=== PATIENT | male | born 1985 | race Caucasian/White ===

== ENCOUNTER 2021-04-08 16:47 | Emergency (ER) | payer BC ==
--- NOTE | 2021-04-08 18:34 | RAD REPORT ---
EXAM DESCRIPTION: RAD - Chest Pa And Lat (2 Views) - 04/08/2021 6:26 pm CLINICAL HISTORY: SOB Chest pain. COMPARISON: No comparisons FINDINGS: Mild bilateral pulmonary opacities are present compatible with COVID-19 infection. The hea rt is normal in size. No displaced fractures.
--- NOTE | 2021-04-08 19:36 | ER ---
Nurse's Notes [facility] Name: Art Valenzuela Age: 35 yrs Sex: Male : 1985 Arrival Date: 04/08/2021 Time: 16:58 Bed 9 Private MD: Diagnosis: Pneumonia due to SARS-associated coronavirus Presentation: 04/08 18:02 Chief complaint: Patient states: SOB, Diarrhea, abdominal, fever, chills. Coronavirus kg screen: Client denies travel out of the [place] in the last 14 days. At this time, unable to obtain information related to travel outside the [place] Client presents with at least one sign or symptom that may indicate coronavirus-19. Standard/surgical mask placed on the client. Provider contacted for isolation considerations. Client reports previous positive COVID test result. Date of collection: April 03, 2021. Ebola Screen: Patient negative for fever greater than or equal to 101.5 degrees Fahrenheit, and additional compatible Ebola Virus Disease symptoms Patient denies exposure to infectious person. Patient denies travel to an Ebola-affected area in the 21 days before illness onset. Initial Sepsis Screen: Does the patient meet any 2 criteria? No. Patient's initial sepsis screen is negative. Does the patient have a suspected source of infection? No. Patient's initial sepsis screen is negative. Risk Assessment: Do you want to hurt yourself or someone else? Patient reports no desire to harm self or others. Onset of symptoms was April 07, 2021. 18:02 Method Of Arrival: Ambulatory kg 18:02 Acuity: [place] 4 kg Triage Assessment: 18:05 General: Appears in no apparent distress. Behavior is calm, cooperative, appropriate kg for age, quiet. Pain: Complains of pain in chest. Cardiovascular: Reports chest pain, shortness of breath. Respiratory: Reports shortness of breath cough that is pain with cough Airway is patent Trachea midline Respiratory effort is labored, Respiratory pattern is tachypnea. Historical: - Allergies: 18:05 No Known Allergies; kg - Home Meds: 18:05 Protonix 40 mg Oral TbEC 1 tab once daily [Active]; kg - PMHx: 18:05 C-diff; Gerd; kg - PSHx: 18:05 None; kg - Immunization history:: Adult Immunizations not up to date, Client reports having NOT received the Covid vaccine. - Social history:: Smoking status: Patient denies any tobacco usage or history of. Patient uses alcohol, occasionally. Screenin:38 Abuse screen: Denies threats or abuse. Denies injuries from another. Nutritional lp1 screening: No deficits noted. Tuberculosis screening: No symptoms or risk factors identified. Fall Risk None identified. Assessment: 20:36 Reassessment: Patient appears in no apparent distress at this time. Seen by Provider. lp1 Neuro: Level of Consciousness is awake, alert, obeys commands. Respiratory: Respiratory effort is even, shallow. Derm: Skin is pink, warm \T\ dry. Vital Signs: 18:02 BP 126 / 77; Pulse 99; Resp 20; Temp 99.3; Pulse Ox 96% on R/A; Weight 111.13 kg (R); kg Height 5 ft. 6 in. (167.64 cm); Pain 5/10; 20:19 BP 138 / 74 LA Supine (auto/lg); Pulse 102 MON; Resp 22 S; Temp 98.8; Pulse Ox 96% ; ds4 Pain 0/10; 18:02 Body Mass Index 39.54 (111.13 kg, 167.64 cm) kg ED Course: 16:58 Patient arrived in ED. mr 18:05 Triage completed. kg 18:24 XRAY Chest Pa And Lat (2 Views) In Process Unspecified. EDOR 19:14 Eris Jesus PA is PHCP. jr8 19:14 Lucas Kan MD is Attending Physician. jr8 20:36 Lizett Robledo, RN is Primary Nurse. lp1 20:38 No provider procedures requiring assistance completed. Patient did not have IV access lp1 during this emergency room visit. Patient maintains SpO2 saturation greater than 95% on room air. 20:38 Patient has correct armband on for positive identification. lp1 Administered Medications: No medications were administered Outcome: 19:35 Discharge ordered by . jr8 20:38 Discharged to home ambulatory. lp1 20:38 Condition: good 20:38 Discharge instructions given to patient, Instructed on discharge instructions, follow up and referral plans. medication usage, Demonstrated understanding of instructions, follow-up care, medications, Prescriptions given X 2. 20:38 Patient left the ED. lp1 Signatures: Dispatcher [employer] [facility] CifuentesDiana recinos Laura, RN RN lp1 Eris Jesus PA PA jr8 Garo Jenkins ds4 Pauly Montelongo RN RN kg Corrections: (The following items were deleted from the chart) 18:07 18:05 Home Meds: None; kg kg
--- NOTE | 2021-04-08 19:36 | EDPHYS ---
Physician Documentation [facility] Name: Art Valenzuela Age: 35 yrs Sex: Male : 1985 Arrival Date: 04/08/2021 Time: 16:58 Bed 9 Private MD: HOWARD Physician Lucas Kan HPI: 04/08 19:32 This 35 yrs old Male presents to ER via Ambulatory with complaints of COVID+, jr8 Chest Tightness, Cough. 19:32 Onset: The symptoms/episode began/occurred gradually. Associated signs and symptoms: jr8 The patient has no apparent associated signs or symptoms. Modifying factors: The patient symptoms are alleviated by nothing, the patient symptoms are aggravated by activity. The patient has not experienced similar symptoms in the past. The patient has not recently seen a physician. Historical: - Allergies: 18:05 No Known Allergies; kg - Home Meds: 18:05 Protonix 40 mg Oral TbEC 1 tab once daily [Active]; kg - PMHx: 18:05 C-diff; Gerd; kg - PSHx: 18:05 None; kg - Immunization history:: Adult Immunizations not up to date, Client reports having NOT received the Covid vaccine. - Social history:: Smoking status: Patient denies any tobacco usage or history of. Patient uses alcohol, occasionally. ROS: 19:32 Eyes: Negative for injury, pain, redness, and discharge, ENT: Negative for injury, jr8 pain, and discharge, Neck: Negative for injury, pain, and swelling, Cardiovascular: Negative for chest pain, palpitations, and edema, Abdomen/GI: Negative for abdominal pain, nausea, vomiting, diarrhea, and constipation, Back: Negative for injury and pain, MS/Extremity: Negative for injury and deformity, Skin: Negative for injury, rash, and discoloration, Neuro: Negative for headache, weakness, numbness, tingling, and seizure. 19:32 Respiratory: Positive for cough, Negative for shortness of breath, sputum production. Exam: 19:32 Constitutional: This is a well developed, well nourished patient who is awake, alert, jr8 and in no acute distress. ENT: Nares patent. No nasal discharge, no septal abnormalities noted. Tympanic membranes are normal and external auditory canals are clear. Oropharynx with no redness, swelling, or masses, exudates, or evidence of obstruction, uvula midline. Mucous membranes moist. Neck: Trachea midline, no thyromegaly or masses palpated, and no cervical lymphadenopathy. Supple, full range of motion without nuchal rigidity, or vertebral point tenderness. No Meningismus. Cardiovascular: Regular rate and rhythm with a normal S1 and S2. No gallops, murmurs, or rubs. Normal PMI, no JVD. No pulse deficits. Respiratory: Lungs have equal breath sounds bilaterally, clear to auscultation and percussion. No rales, rhonchi or wheezes noted. No increased work of breathing, no retractions or nasal flaring. Abdomen/GI: Soft, non-tender, with normal bowel sounds. No distension or tympany. No guarding or rebound. No evidence of tenderness throughout. Back: No spinal tenderness. No costovertebral tenderness. Full range of motion. Skin: Warm, dry with normal turgor. Normal color with no rashes, no lesions, and no evidence of cellulitis. MS/ Extremity: Pulses equal, no cyanosis. Neurovascular intact. Full, normal range of motion. Neuro: Awake and alert, GCS 15, oriented to person, place, time, and situation. Cranial nerves II-XII grossly intact. Motor strength 5/5 in all extremities. Sensory grossly intact. Cerebellar exam normal. Normal gait. Vital Signs: 18:02 BP 126 / 77; Pulse 99; Resp 20; Temp 99.3; Pulse Ox 96% on R/A; Weight 111.13 kg (R); kg Height 5 ft. 6 in. (167.64 cm); Pain 5/10; 20:19 BP 138 / 74 LA Supine (auto/lg); Pulse 102 MON; Resp 22 S; Temp 98.8; Pulse Ox 96% ; ds4 Pain 0/10; 18:02 Body Mass Index 39.54 (111.13 kg, 167.64 cm) kg MDM: 19:14 Patient medically screened. jr8 19:34 Data reviewed: vital signs, nurses notes, radiologic studies, plain films. Data jr8 interpreted: Pulse oximetry: on room air is 96 %. Interpretation: normal. Counseling: I had a detailed discussion with the patient and/or guardian regarding: the historical points, exam findings, and any diagnostic results supporting the discharge/admit diagnosis, radiology results, the need for outpatient follow up, a family practitioner, to return to the emergency department if symptoms worsen or persist or if there are any questions or concerns that arise at home. ED course: Patient remains hemodynamically stable in emergency room. No increased work of breathing at this time. Oxygen saturation 96% on room air. Patient does have mild viral pneumonia present on chest x-ray. Will treat with steroids and ivermectin at this time. To continue vitamin regimen [id number]. Close return precautions given. Patient agrees with plan and will come back if needed.. 04/08 18:08 Order name: XRAY Chest Pa And Lat (2 Views); Complete Time: 19:31 kg Administered Medications: No medications were administered Disposition: 04/09 07:51 Co-signature as Attending Physician, Lucas Kan MD I agree with the assessment and chandu plan of care. Disposition Summary: 04/08/21 19:35 Discharge Ordered Location: Home jr8 Problem: new jr8 Symptoms: have improved jr8 Condition: Stable jr8 Diagnosis - Pneumonia due to SARS-associated coronavirus jr8 Followup: jr8 - With: Private Physician - When: 5 - 6 days - Reason: Recheck today's complaints, Continuance of care, Re-evaluation by your physician Discharge Instructions: - Discharge Summary Sheet jr8 - COVID-19 jr8 Forms: - Medication Reconciliation Form jr8 - Thank You Letter jr8 - Antibiotic Education jr8 - Prescription Opioid Use jr8 Prescriptions: - ivermectin 3 mg Oral tablet - take 6 tablet by ORAL route once daily for 3 days; 18 tablet; Refills: 0, jr8 Product Selection Permitted - Prednisone 20 mg Oral Tablet - take 1 tablet by ORAL route once daily for 7 days; 7 tablet; Refills: 0, jr8 Product Selection Permitted Signatures: Dispatcher [employer] EDLucas Holliday MD MD cha Roszak, Josh, PA PA jr8 Pauly Montelongo RN RN kg Corrections: (The following items were deleted from the chart) 04/08 18:07 18:05 Home Meds: None; kg kg
[2021-04-08 20:51] VITALS: O2SAT 96
[2021-04-08 20:53] VITALS: BP 138/74; TEMP 98.8
== END 2021-04-08 20:38 | disposition home or self-care (01) ==
LOC: ER 16:47
DX: U07.1 COVID-19 (principal); J12.82 Pneumonia due to coronavirus disease 2019
CPT/HCPCS: 71046; 99284

== ENCOUNTER 2021-04-12 00:30 | Inpatient (IN) | payer BC ==
[2021-04-12] MEDS ORDERED: BENZONATATE 100 MG CAP PO ONE (02:52)
[2021-04-12] MEDS ORDERED: NA CHLORIDE 0.9% 1,000 ML ONE (02:52)
[2021-04-12] MEDS ORDERED: METHYLPREDNISOLONE 125 MG INJ ONE ×3 (02:52→15:14)
[2021-04-12 03:04] LABS: Absolute Lymphocytes (CBC) 0.5 K/uL (0.7-4.9); Basophils % 0.2 % (0-1.3); Hematocrit 37.6 % (39.6-49.0); Lymphocytes % 10.2 % (15.3-44.8); MPV 7.6 fL (7.6-11.3); RBC Red Blood Cell Count 4.46 M/uL (4.33-5.43)
[2021-04-12 03:05] LABS: Protime INR 1.23
[2021-04-12 03:23] LABS: ALT/SGPT 80 U/L (12-78); AST/SGOT 146 U/L (15-37); Albumin 3.3 g/dL (3.4-5.0); Alkaline Phosphatase 40 U/L (45-117); BUN Blood Urea Nitrogen 15 mg/dL (7-18); Bicarbonate 27 mmol/L (21-32); Bilirubin Direct 0.3 mg/dL (0-0.2); Bilirubin Total 0.7 mg/dL (0.2-1.0); Glucose Level 103 mg/dL (74-106); Magnesium 2.3 mg/dL (1.8-2.4); NT PRO-BNP 46 pg/mL (<125); Potassium 3.5 mmol/L (3.5-5.1); Protein, Total 7.7 g/dL (6.4-8.2); Sodium Level 127 mmol/L (136-145); Troponin (Emerg Dept Use Only) < 0.02 ng/mL (0.0-0.045)
[2021-04-12 03:35] LABS: C-Reactive Protein 72.2 mg/L (<3.00); Ferritin 929.4 ng/mL (26-388)
--- NOTE | 2021-04-12 03:35 | ER ---
Nurse's Notes [facility] Name: Art Valenzuela Age: 35 yrs Sex: Male : 1985 Arrival Date: 04/12/2021 Time: 00:31 Bed 28 Private MD: Diagnosis: Other viral pneumonia;SARS-associated coronavirus as the cause of diseases classified elsewhere;Acute respiratory failure with hypoxia;Dyspnea Presentation: 04/12 01:59 Chief complaint: Patient states: covid positive 3 days ago, was sent home with abx, em reports increased shortness of breath and reports fever, having few word sentences in triage. Coronavirus screen: Client denies travel out of the [place] in the last 14 days. Ebola Screen: Patient negative for fever greater than or equal to 101.5 degrees Fahrenheit, and additional compatible Ebola Virus Disease symptoms Patient denies exposure to infectious person. Patient denies travel to an Ebola-affected area in the 21 days before illness onset. No symptoms or risks identified at this time. Initial Sepsis Screen: Does the patient meet any 2 criteria? RR > 20 per min. HR > 90 bpm. No. Patient's initial sepsis screen is negative. Does the patient have a suspected source of infection? No. Patient's initial sepsis screen is negative. Risk Assessment: Do you want to hurt yourself or someone else? Patient reports no desire to harm self or others. Onset of symptoms was April 08, 2021. 01:59 Method Of Arrival: Ambulatory em 01:59 Acuity: [place] 2 em Triage Assessment: 03:00 Respiratory: Reports shortness of breath at rest on exertion Onset: The bb symptoms/episode began/occurred at an unknown time. the patient has moderate shortness of breath. Historical: - Allergies: 02:02 No Known Allergies; em - PMHx: 02:02 C-diff; GERD; em - PSHx: 02:02 None; em - Social history:: Smoking status: Patient denies any tobacco usage or history of. Screenin:30 Abuse screen: Denies threats or abuse. Nutritional screening: No deficits noted. bb Tuberculosis screening: No symptoms or risk factors identified. Fall Risk None identified. Assessment: 02:30 General: Appears distressed, uncomfortable, Behavior is anxious. Pain: Denies pain. bb Neuro: Level of Consciousness is awake, alert, obeys commands, Oriented to person, place, time, situation. Respiratory: Airway is patent Respiratory effort is labored, Respiratory pattern is tachypnea. GI: No signs and/or symptoms were reported involving the gastrointestinal system. Derm: Skin is dry, Skin is oliveira Skin temperature is warm. Musculoskeletal: Circulation, motion, and sensation intact. 02:30 Respiratory: Breath sounds are diminished bilaterally. bb 03:30 Reassessment: pt alert and oriented x 4, resp tachypneic and less labored, pt to be bb admitted, verbalized understanding of and agrees to plan of care. 04:30 Reassessment: pt is A\\T\\O x 4, resp less labored, tachypneic states he is feeling a bb little better. 05:02 Cardiovascular: Rhythm is sinus rhythm. bb 06:03 Reassessment: Pt is A\\T\\O x 4, resp unlabored, IV site intact, pt instructed on need for bb admit, verbalized understanding of and agrees to plan of care. Vital Signs: 01:59 BP 121 / 81; Pulse 98; Resp 40; Temp 99.2; Pulse Ox 83% on R/A; Weight 111.13 kg; em Height 5 ft. 6 in. (167.64 cm); 02:18 Pulse Ox 93% on 5 lpm NC; em 05:04 BP 120 / 77; Pulse 90; Resp 32 S; Pulse Ox 92% on 5 lpm NC; bb 06:07 BP 112 / 60; Pulse 98; Resp 28 S; Pulse Ox 94% on 5 lpm NC; bb 04/14 05:45 BP 122 / 65; Pulse 84; Resp 17; Pulse Ox 88% on 5 lpm NC; mw2 04/12 01:59 Body Mass Index 39.54 (111.13 kg, 167.64 cm) em ED Course: 04/12 00:31 Patient arrived in ED. bp1 02:02 Triage completed. em 02:02 Arm band placed on. em 02:18 Umberto Alexander MD is Attending Physician. mh7 02:21 Lucas Peng PA is PHCP. cp 02:30 Patient has correct armband on for positive identification. Call light in reach. bb 02:32 XRAY Chest (1 view) In Process Unspecified. EDMS 02:43 Missed attempt(s): 18 gauge in left antecubital area. Bleeding controlled, band aid bb applied, catheter tip intact. 02:45 Initial lab(s) drawn, by me, sent to lab. Inserted saline lock: 18 gauge in right bb antecubital area, using aseptic technique. Blood collected. 03:33 Yvon Castillo DO is Hospitalizing Provider. cp 04:11 CT Chest For PE Angio In Process Unspecified. EDMS 05:02 Patient admitted, IV remains in place. bb 05:04 No provider procedures requiring assistance completed. bb 05:11 COVID-19 : Document "Date of Symptom Onset" if Symptomatic. Sent. bb 04/14 07:05 Geoff Solomon, RN is Primary Nurse. bp 19:30 Primary Nurse role handed off by Geoff Solomon, LACY mw2 23:16 nAa Figueroa, RN is Primary Nurse. ch4 Administered Medications: 04/12 02:53 Drug: SOLU-Medrol (methylPrednisoLONE) 125 mg Route: IVP; Site: right antecubital; bb 03:50 Follow up: Response: No adverse reaction bb 02:53 Drug: NS 0.9% 1000 ml Route: IV; Rate: 1 bolus; Site: right antecubital; bb 03:50 Follow up: IV Status: Completed infusion; IV Intake: 1000ml bb 02:53 Drug: Tessalon Perle (benzonatate) 200 mg Route: PO; bb 03:50 Follow up: Response: No adverse reaction bb Intake: 03:50 IV: 1000ml; Total: 1000ml. bb Outcome: 03:34 Decision to Hospitalize by Provider. cp 05:03 Instructed on the need for admit. bb 06:07 Admitted to ER Hold. Please see [facility] for further documentation. bb 06:07 Condition: stable 04/14 23:38 Patient left the ED. ch4 Signatures: Dispatcher [employer] EDMI Adiel Meng, RN Yoli Cruz RN RN bb Lucas Peng PA PA cp Geoff Solomon, LACY RN Toñito Bernstein mw2 Roshni Alvarez [facility] Umberto Alexander MD MD [facility] Ana Figueroa, LACY RN ch4
--- NOTE | 2021-04-12 03:35 | EDPHYS ---
Physician Documentation Formerly [facility] Name: Art Valenzuela Age: 35 yrs Sex: Male : 1985 Arrival Date: 04/12/2021 Time: 00:31 Bed 28 Private MD: ED Physician Umberto Alexander HPI: 04/12 02:20 This 35 yrs old Male presents to ER via Ambulatory with complaints of cp Breathing Difficulty. 02:20 The patient has shortness of breath at rest. cp 02:20 Onset: The symptoms/episode began/occurred 3 day(s) ago, and became worse. Duration: cp The symptoms are continuous, and are steadily getting worse. Associated signs and symptoms: Pertinent positives: chest pain, Pertinent negatives: productive cough, fever. Severity of symptoms: in the emergency department the symptoms are unchanged despite home interventions. Patient reports testing positive for COVID-19 3 days ago. Historical: - Allergies: 02:02 No Known Allergies; em - PMHx: 02:02 C-diff; GERD; em - PSHx: 02:02 None; em - Social history:: Smoking status: Patient denies any tobacco usage or history of. ROS: 02:25 Constitutional: Negative for body aches, chills, fever, poor PO intake. cp 02:25 Eyes: Negative for injury, pain, redness, and discharge. cp 02:25 ENT: Negative for drainage from ear(s), ear pain, sore throat, difficulty swallowing, difficulty handling secretions. 02:25 Cardiovascular: Negative for chest pain, edema, palpitations. 02:25 Respiratory: Positive for cough, "sounds productive", shortness of breath, at rest. 02:25 Abdomen/GI: Negative for abdominal pain, vomiting, diarrhea, constipation. 02:25 Skin: Negative for rash. 02:25 Neuro: Negative for altered mental status, headache, weakness. 02:25 All other systems are negative. Exam: 02:30 Constitutional: The patient appears in no acute distress, alert, awake, cp non-diaphoretic, non-toxic, well developed, well nourished, in obvious distress, mildly distressed. 02:30 Head/Face: Normocephalic, atraumatic. cp 02:30 Eyes: Periorbital structures: appear normal, Conjunctiva: normal, no exudate, no injection, Sclera: no appreciated abnormality, Lids and lashes: appear normal, bilaterally. 02:30 ENT: External ear(s): are unremarkable, Nose: is normal, Mouth: Lips: moist, Oral mucosa: pink and intact, moist, Posterior pharynx: Airway: no evidence of obstruction, patent, Tonsils: are normal in appearance, swelling, is not appreciated, erythema, is not appreciated, exudate, is not appreciated. 02:30 Neck: ROM/movement: is normal, is supple, no meningismus, no nuchal rigidity. 02:30 Chest/axilla: Inspection: normal. 02:30 Cardiovascular: Rate: normal, Rhythm: regular, Edema: is not appreciated, JVD: is not appreciated. 02:30 Respiratory: mild respiratory distress is noted, Respirations: labored breathing, that is mild, shallow respirations, that is moderate, Breath sounds: decreased breath sounds, that are mild, throughout, stridor, is not appreciated, wheezing: is not appreciated. 02:30 Abdomen/GI: Inspection: abdomen appears normal, Palpation: abdomen is soft and non-tender, in all quadrants. 02:30 Back: pain, is absent, ROM is normal. 02:30 Neuro: Orientation: to person, place \\T\\ time. Mentation: is normal, Motor: moves all fours, strength is normal, Sensation: is normal. 03:48 ECG was reviewed by the Attending Physician. cp Vital Signs: 01:59 BP 121 / 81; Pulse 98; Resp 40; Temp 99.2; Pulse Ox 83% on R/A; Weight 111.13 kg; em Height 5 ft. 6 in. (167.64 cm); 02:18 Pulse Ox 93% on 5 lpm NC; em 05:04 BP 120 / 77; Pulse 90; Resp 32 S; Pulse Ox 92% on 5 lpm NC; bb 06:07 BP 112 / 60; Pulse 98; Resp 28 S; Pulse Ox 94% on 5 lpm NC; bb 04/14 05:45 BP 122 / 65; Pulse 84; Resp 17; Pulse Ox 88% on 5 lpm NC; mw2 04/12 01:59 Body Mass Index 39.54 (111.13 kg, 167.64 cm) em MDM: 04/12 02:22 Patient medically screened. cp 03:00 Differential diagnosis: Bronchitis pneumonia, pulmonary edema, Pulmonary Embolism cp Sepsis respiratory failure. 03:35 Data reviewed: vital signs, nurses notes, lab test result(s), EKG, radiologic studies, cp plain films, and as a result, I will admit patient. 03:35 Test interpretation: by ED physician or midlevel provider: ECG, plain radiologic cp studies. Physician consultation: Dinesh HAYS was contacted at 03:35, regarding admission, to the telemetry unit. patient's condition. 04/12 02:14 Order name: Basic Metabolic Panel; Complete Time: 03:29 cp 04/12 03:29 Interpretation: Normal except: NA 127; CL 95; GFR 69; CA 8.3. cp 04/12 02:14 Order name: CBC with Diff; Complete Time: 03:29 cp 04/12 03:29 Interpretation: Normal except: HGB 13.2; HCT 37.6. cp 04/12 02:14 Order name: LFT's; Complete Time: 03:29 cp 04/12 02:14 Order name: Magnesium; Complete Time: 03:29 cp 04/12 02:14 Order name: NT PRO-BNP; Complete Time: 03:29 cp 04/12 02:14 Order name: PT-INR; Complete Time: 03:29 cp 04/12 02:14 Order name: Troponin (emerg Dept Use Only); Complete Time: 03:29 cp 04/12 02:22 Order name: CRP cp 04/12 02:22 Order name: Ferritin; Complete Time: 04:34 cp 04/12 02:22 Order name: C-Reactive Protein; Complete Time: 04:34 EDPR 04/12 02:41 Order name: D-Dimer; Complete Time: 03:29 EDMS 04/12 03:07 Order name: ABG cp 04/12 05:01 Order name: COVID-19 : Document "Date of Symptom Onset" if Symptomatic. bb 04/12 02:14 Order name: XRAY Chest (1 view) cp 04/12 03:30 Order name: CT Chest For PE Angio cp 04/12 05:23 Order name: CORONAVIRUS EDPR 04/12 06:51 Order name: SARS-COV-2 RT PCR EDPR 04/12 14:06 Order name: US EDPR 04/13 04:07 Order name: CBC with Automated Diff EDPR 04/13 04:24 Order name: Comprehensive Metabolic Panel EDPR 04/13 04:24 Order name: Phosphorus EDMS 04/13 04:24 Order name: Lipid Profile EDMS 04/13 04:24 Order name: C-Reactive Protein EDMS 04/13 04:24 Order name: T4 Free EDMS 04/13 04:24 Order name: Magnesium EDMS 04/13 04:24 Order name: Thyroid Stimulating Hormone EDPR 04/13 04:24 Order name: Ferritin EDMS 04/13 05:08 Order name: Procalcitonin EDPR 04/13 08:22 Order name: RAD EDMS 04/12 02:14 Order name: EKG; Complete Time: 02:15 cp 04/12 02:14 Order name: Cardiac monitoring; Complete Time: 05:07 cp 04/12 02:14 Order name: EKG - Nurse/Tech; Complete Time: 05:07 cp 04/12 02:14 Order name: IV Saline Lock; Complete Time: 02:54 cp 04/12 02:14 Order name: Labs collected and sent; Complete Time: 02:54 cp 04/12 02:14 Order name: O2 Per Protocol; Complete Time: 02:54 cp 04/12 02:14 Order name: O2 Sat Monitoring; Complete Time: 02:54 cp 04/12 03:15 Order name: CONS Physician Consult EDMS EC:48 Rate is 95 beats/min. Rhythm is regular. MA interval is normal. QRS interval is normal. cp QT interval is normal. T waves are Inverted in lead III. Interpreted by me. Reviewed by me. Administered Medications: 02:53 Drug: SOLU-Medrol (methylPrednisoLONE) 125 mg Route: IVP; Site: right antecubital; bb 03:50 Follow up: Response: No adverse reaction bb 02:53 Drug: NS 0.9% 1000 ml Route: IV; Rate: 1 bolus; Site: right antecubital; bb 03:50 Follow up: IV Status: Completed infusion; IV Intake: 1000ml bb 02:53 Drug: Tessalon Perle (benzonatate) 200 mg Route: PO; bb 03:50 Follow up: Response: No adverse reaction bb Disposition Summary: 04/12/21 03:34 Hospitalization Ordered Hospitalization Status: Inpatient Admission(04/12/21 03:35) mw Provider: Yvon Castillo(04/12/21 03:35) mw Condition: Serious(04/12/21 03:35) mw Problem: new(04/12/21 03:35) mw Symptoms: are unchanged(04/12/21 03:35) mw Bed/Room Type: Standard(04/12/21 03:35) mw Location: Telemetry/MedSurg (Inpatient)(04/14/21 21:15) mw Room Assignment: 412(04/14/21 21:15) mw Diagnosis - Other viral pneumonia cp - SARS-associated coronavirus as the cause of diseases classified elsewhere cp - Acute respiratory failure with hypoxia cp - Dyspnea mw Forms: - Medication Reconciliation Form cp - SBAR form cp Addendum: 04/18/2021 19:10 Co-signature as Attending Physician, Umberto Alexander MD. [facility] Signatures: Dispatcher [employer] EDMS Yessy Negro RN RN mw Munoz, Edgar, RN RN em Ballard, Brenda, RN RN bb Page, Corey, PA PA cp Holmes, Maurice, MD MD mh7 Dinesh Lombardo PA PA Corrections: (The following items were deleted from the chart) 04/12 02:41 02:22 D-DIMER+COAG.LAB.BRZ ordered. EDPR EDMS 03:35 03:34 Inpatient Admission cp mw 03:35 03:34 Yvon Castillo cp mw 03:35 03:34 Telemetry/MedSurg (Inpatient) cp mw 03:35 03:34 Fair cp mw 03:35 03:34 new cp mw 03:35 03:34 have improved cp mw 03:35 03:34 Standard cp mw 03:35 03:34 cp mw 03:36 03:35 Telemetry/MedSurg (Inpatient) mw mw 03:36 03:35 mw mw 04/13 02:30 04/12 02:20 Patient reports testing positive for COVID-19 5 days ago. cp cp 04/14 21:15 04/12 03:36 [facility] ER HOLD mw mw 04/14 21:15 04/12 03:36 ERHOLD- mw mw
--- NOTE | 2021-04-12 04:40 | P.HP ---
Certification for Inpatient Patient admitted to: Inpatient With expected LOS: >2 Midnights Patient will require the following post-hospital care: None Practitioner: I am a practitioner with admitting privileges, knowledge of patient current condition, hospital course, and medical plan of care. Services: Services provided to patient in accordance with Admission requirements found in Title 42 Section 412.3 of the Code of Federal Regulations Patient History Date of Service: 04/12/21 Reason for admission: covid pneumonia History of Present Illness: Mr. Valenzuela is a 35 yo M who presents with worsening SOB, and COVID+ diagnosis. He started having symptoms 2 weeks ago. Initially it was fever, chills, body aches, cough, nausea, vomiting, diarrhea, and poor appetite. 3 days ago the SOB began so he went to the ED and went home on steroids and Ivermectin. He says this improved the fevers, but he still is SOB and cannot sleep due to the cough. Ddimer 826. Na 127, Cl 95, GFR 69, Ferritin 929, CRP 72 , Dbili 0.3, AST 146, ALT 80. - Past Medical/Surgical History -: GERD Past Surgical History: Patient denies surgical history - Family History Family History: Reviewed- Non-Contributory - Social History Smoking Status: Never smoker Alcohol use: No CD- Drugs: No Caffeine use: No Place of Residence: Home Review of Systems 10-point ROS is otherwise unremarkable General: Fever, Chills, Sweats, Weakness, Malaise Respiratory: Cough, Shortness of Breath, SOB with Excertion, Pleuritic Pain, Wheezing Gastrointestinal: Nausea, Vomiting, Diarrhea Physical Examination - Physical Exam General: Alert, In no apparent distress HEENT: Atraumatic Neck: Supple, 2+ carotid pulse no bruit, No LAD, Without JVD or thyroid abnormality Respiratory: Expiratory wheezes, Rhonchi/gurgles Cardiovascular: Regular rate/rhythm, Normal S1 S2 Gastrointestinal: Normal bowel sounds, No tenderness Musculoskeletal: No tenderness Integumentary: No rashes Neurological: Normal gait, Normal speech, Normal strength at 5/5 x4 extr, Normal tone, Normal affect Lymphatics: No axilla or inguinal lymphadenopathy - Studies Laboratory Data (last 24 hrs) 04/12/21 02:45: PT 14.2 H, INR 1.23 04/12/21 02:45: WBC 4.90, Hgb 13.2 L, Hct 37.6 L, Plt Count 197 04/12/21 02:45: Sodium 127 L, Potassium 3.5, BUN 15, Creatinine 1.21, Glucose 103, Magnesium 2.3, Total Bilirubin 0.7, AST 146 H, ALT 80 H, Alkaline Phosphatase 40 L Assessment and Plan - Problems (Diagnosis) (1) Pneumonia due to COVID-19 virus Current Visit: Yes Status: Acute - Plan pulm consulted, RT consulted already received ivermectin, continue IV steroids and covid supplement room air sats daily and evaluation for home O2 pain management as needed, antitussives as needed daily crp, ferritin, procal DVT ppx Discharge Plan: Home Plan to discharge in: 72 Hours - Advance Directives Does patient have a Living Will: No Does patient have a Durable POA for Healthcare: No - Code Status/Comfort Care Code Status Assessed: Yes (full code ) Critical Care: No Time Spent Managing Pts Care (In Minutes): 70
[2021-04-12 05:44] LABS: Arterial Blood Carboxyhemoglob 1.1 % (0-1.5); Blood Gas Oxyhemoglobin 92.6 % (94-97); Blood O2 Saturation 94.4 % (92-98.5)
--- NOTE | 2021-04-12 06:26 | P.PN ---
Subjective Date of Service: 04/12/21 Chief Complaint: covid pneumonia Subjective: Improving, Other (Patient currently on 4 L per nasal cannula.) Physical Examination - Studies Laboratory Data (last 24 hrs) 04/12/21 02:45: PT 14.2 H, INR 1.23 04/12/21 02:45: WBC 4.90, Hgb 13.2 L, Hct 37.6 L, Plt Count 197 04/12/21 02:45: Sodium 127 L, Potassium 3.5, BUN 15, Creatinine 1.21, Glucose 103, Magnesium 2.3, Total Bilirubin 0.7, AST 146 H, ALT 80 H, Alkaline Phosphatase 40 L Assessment & Plan Discharge Plan: Home Plan to discharge in: 24 Hours Physician Review Additional Text: COVID: Positive, unvaccinated Physical exam: General: Alert, In no apparent distress HEENT: Atraumatic Neck: Supple, 2+ carotid pulse no bruit, No LAD, Without JVD or thyroid abnormality Respiratory: Good air movement bilateral. Currently on 4 L per nasal cannula Cardiovascular: Regular rate and rhythm Gastrointestinal: Normal bowel sounds, No tenderness Musculoskeletal: No tenderness Integumentary: No rashes Neurological: Normal gait, Normal speech, Normal strength at 5/5 x4 extr, Normal tone, Normal affect Lymphatics: No axilla or inguinal lymphadenopathy Impression: Dyspnea secondary to bilateral Covid pneumonia with hypoxia Elevated liver function suspect fatty liver Plan: Dyspnea secondary to bilateral Covid pneumonia with hypoxia: Patient appears improved. Currently on 4 L per nasal cannula. Continue to wean off. Maintain sats above 93%. Will adjust IV steroids. Continue vitamin supplementation. DVT prophylaxis in placeLovenox. Continue aspirin, Pepcid. Respiratory to help wean off oxygen. Pulmonology consulted. Await further recommendation. Patient not a candidate for baricitinib due to elevated liver function. Will monitor liver function test. Will check liver ultrasound to evaluate for fatty liver. Encourage ambulation, proning and incentive spirometer. We will continue to reassess. Likely home as early as tomorrow if able to ambulate well without significant desaturations. Elevated liver function suspect fatty liver: Will check liver ultrasound. Monitor liver function test. CODE STATUS: Full code DVT prophylaxis: Lovenox Advanced care [id number] minutes: Home at discharge Time Spent Managing Pts Care (In Minutes): 55
[2021-04-12] MEDS ORDERED: ACETAMINOPHEN 500 MG TAB PO PRN (07:24)
[2021-04-12] MEDS ORDERED: ONDANSETRON 4 MG/2 ML VIAL IV PRN (07:24)
[2021-04-12] MEDS ORDERED: MORPHINE 2 MG/ML SYR IV PRN (07:24)
[2021-04-12] MEDS ORDERED: BENZONATATE 100 MG CAP PO PRN (07:24)
[2021-04-12] MEDS: ZINC SULFATE 220 MG CAP PO SCH (09:00)
[2021-04-12] MEDS ORDERED: ASPIRIN EC 81 MG TAB PO SCH (09:00)
[2021-04-12] MEDS: VITAMIN D 1000 UNIT TAB PO SCH (09:00)
[2021-04-12] MEDS: THIAMINE HCL 100 MG TABLET PO SCH (09:00)
[2021-04-12] MEDS ORDERED: FAMOTIDINE 20 MG TAB PO SCH (09:00)
[2021-04-12] MEDS ORDERED: METHYLPREDNISOLONE 125 MG INJ IV SCH ×2 (09:00)
[2021-04-12] MEDS: ASCORBIC ACID 500 MG TABLET PO SCH ×4 (09:00→21:00)
[2021-04-12] MEDS ORDERED: TRAMADOL HCL 50 MG TAB PO PRN (09:06)
[2021-04-12] MEDS ORDERED: ZINC SULFATE 220 MG CAP ONE (09:14)
[2021-04-12] MEDS ORDERED: ASCORBIC ACID 500 MG TABLET ONE ×4 (09:14→22:33)
[2021-04-12] MEDS ORDERED: ASPIRIN EC 81 MG TAB PO ONE (09:14)
[2021-04-12] MEDS ORDERED: THIAMINE HCL 100 MG TABLET ONE (09:14)
[2021-04-12] MEDS ORDERED: VITAMIN D 1000 UNIT TAB ONE (09:15)
[2021-04-12] MEDS ORDERED: FAMOTIDINE 20 MG/2 ML VIAL IV ONE (09:15)
--- NOTE | 2021-04-12 09:36 | RAD REPORT ---
EXAM DESCRIPTION: RAD - Chest Single View - 04/12/2021 2:32 am CLINICAL HISTORY: SOB, COVID positive COMPARISON: Two view chest April 08 TECHNIQUE: AP portable chest image was obtained 04/12/2021 2:32 am . FINDINGS: Lung volumes are low. Interstitial and alveolar opacities are present and show progression since comparison imaging. The interval change is exaggerated by the low lung volume but is suspected to be true progression. Correlation can be made with clinical presentation. Trachea is midline. Cardiac silhouette is magnified by low lung volume. Lung parenchymal disease obsc ures the left heart border. No measurable pleural effusion and no pneumothorax. No acute bony abnorma lity seen. No acute aortic findings suspected. IMPRESSION: Low lung volume exam shows worsening COVID-19 pneumonia findings. The low lung volumes and body habitus affects exaggerates the severity of progression.
[2021-04-12] MEDS: GUAIFENESIN/CODEINE 5ML UCUP PO PRN ×2 (10:16→19:01)
[2021-04-12] MEDS ORDERED: GUAIFENESIN/CODEINE 5ML UCUP ONE ×2 (10:35→19:20)
[2021-04-12] MEDS ORDERED: MORPHINE 2 MG/ML SYR ONE (12:37)
[2021-04-12] MEDS: METHYLPREDNISOLONE 125 MG INJ IV SCH ×2 (14:00→21:00)
--- NOTE | 2021-04-12 14:06 | RAD REPORT ---
EXAM DESCRIPTION: US - Liver Only - 04/12/2021 1:29 pm CLINICAL HISTORY: Elevated liver function, suspect fatty liver COMPARISON: <Comparisons> TECHNIQUE: Sonographic evaluation of the right upper quadrant was performed as a dedicated liver ult rasound study. FINDINGS: Patient was limited somewhat by body habitus affects and limited mobility of the patient. No liver capsule nodularity or focal liver lesions seen. No portal vein abnormality identifiable. Coa rsened, increased hepatic echogenicity is present typical for hepatic steatosis. No biliary dilatatio n. Liver measures 19 cm. IMPRESSION: Fatty infiltration of a prominent size liver measuring 19 cm. No focal liver lesion identifiable.
[2021-04-12] MEDS: ENOXAPARIN 40 MG/0.4 ML SQ SCH (17:00)
[2021-04-12] MEDS ORDERED: RIVAROXABAN 10 MG TABLET PO SCH (17:00)
[2021-04-12] MEDS ORDERED: ENOXAPARIN 40 MG/0.4 ML SQ ONE (17:11)
--- NOTE | 2021-04-12 20:26 | RAD REPORT ---
EXAM DESCRIPTION: CT - Chest For Pe Angio - 04/12/2021 6:31 am CLINICAL HISTORY: The patient is 35 years old and is Male; SOB TECHNIQUE: Axial computed tomographic angiography images of the chest with intravenous contrast. S agittal and coronal reformatted images were created and reviewed. This CT exam was performed using one or more of the following dose reduction techniques: automated exposure control, adjustment of t he mA and/or kV according to patient size, and/or use of iterative reconstruction technique. MIP reconstructed images were created and reviewed. COMPARISON: CT of the chest May 30, 2020 FINDINGS: PULMONARY ARTERIES: There are no obvious filling defects identified within the pulmonary arteries to suggest pulmonary embolism. AORTA: No acute findings. No thoracic aortic aneurysm. LUNGS: Extensive groundglass opacities are noted throughout the lungs. There are slightly low lance g volumes. The tracheobronchial tree is widely patent. PLEURAL SPACE: Unremarkable. No significant effusion. No pneumothorax. HEART: Unremarkable. No cardiomegaly. No significant pericardial effusion. No evidence of R V dysfunction. BONES/JOINTS: No acute fracture. No dislocation. SOFT TISSUES: Unremarkable. LYMPH NODES: Unremarkable. No enlarged lymph nodes. LIVER: The liver is enlarged and diffusely fatty. IMPRESSION: 1. Commonly reported imaging features of (COVID-19 or viral) pneumonia are present. Ot her processes such as influenza pneumonia and organizing pneumonia, as can be seen with drug toxicity and connective tissue disease, can cause a similar imaging pattern. [id number] 2. No evidence of pulmonary embolism. Electronically signed by: Sharita Juárez MD 04/12/2021 4:39 AM CDT Due to temporary technical issues with the PACS/Fluency reporting system, reports are being signed by the in house radiologists without review as a courtesy to insure prompt reporting. The interpreting radiologist is fully responsible for the content of the report.
[2021-04-12] MEDS: FAMOTIDINE 20 MG TAB PO SCH (21:00)
[2021-04-12] MEDS ORDERED: FAMOTIDINE 20 MG TAB ONE (22:33)
[2021-04-12] MEDS ORDERED: METHYLPREDNISOLONE 40 MG INJ ONE (22:33)
[2021-04-13 03:34] LABS: Absolute Lymphocytes (CBC) 0.4 K/uL (0.7-4.9); Basophils % 0.1 % (0-1.3); Hematocrit 38.4 % (39.6-49.0); Lymphocytes % 3.7 % (15.3-44.8); MPV 7.8 fL (7.6-11.3); RBC Red Blood Cell Count 4.52 M/uL (4.33-5.43)
[2021-04-13 04:23] LABS: Bilirubin Total 0.6 mg/dL (0.2-1.0); C-Reactive Protein 63.9 mg/L (<3.00); Ferritin 973.9 ng/mL (26-388); Magnesium 2.7 mg/dL (1.8-2.4); Phosphorus 2.4 mg/dL (2.5-4.9); Potassium 4.2 mmol/L (3.5-5.1); Protein, Total 7.6 g/dL (6.4-8.2); Thyroid Stimulating Hormone 0.475 uIU/mL (0.360-3.740)
[2021-04-13 06:01] VITALS: BMI 39.5
--- NOTE | 2021-04-13 06:29 | P.PN ---
Subjective Date of Service: 04/13/21 Chief Complaint: covid pneumonia Subjective: Other (Patient reports slight improvement. Currently on 10 L per nasal cannula.) Physical Examination - Vital Signs Temperature: 97.3 F Blood Pressure: 129/64 Pulse: 98 Respirations: 26 Pulse Ox (%): 88 Assessment & Plan Discharge Plan: Home Plan to discharge in: 72 Hours Physician Review Additional Text: COVID: Positive, unvaccinated CT scan: COMPARISON: CT of the chest May 30, 2020 FINDINGS: PULMONARY ARTERIES: There are no obvious filling defects identified within the pulmonary arteries to suggest pulmonary embolism. AORTA: No acute findings. No thoracic aortic aneurysm. LUNGS: Extensive groundglass opacities are noted throughout the lungs. There are slightly low lung volumes. The tracheobronchial tree is widely patent. PLEURAL SPACE: Unremarkable. No significant effusion. No pneumothorax. HEART: Unremarkable. No cardiomegaly. No significant pericardial effu aram. No evidence of RV dysfunction. BONES/JOINTS: No acute fracture. No dislocation. SOFT TISSUES: Unremarkable. LYMPH NODES: Unremarkable. No enlarged lymph nodes. LIVER: The liver is enlarged and diffusely fatty. IMPRESSION: 1. Commonly reported imaging features of (COVID-19 or viral) pneumonia are present. Other processes such as influenza pneumonia and organizing pneumonia, as can be seen with drug toxicity and connective tissue disease, can cause a similar imaging pattern. [id number] 2. No evidence of pulmonary embolism. Follow-up chest x-ray: COMPARISON: Chest Single View dated 04/12/2021; Chest Pa And Lat (2 Views) dated 04/08/2021 FINDINGS: Severe widespread bilateral airspace disease without significant change compared with 04/12/2021. Cardiomegaly.No acute osseous abnormality. No significant pleural effusions or pneumothorax. IMPRESSION: Severe widespread airspace disease which is unchanged. Liver US: COMPARISON: <Comparisons> TECHNIQUE: Sonographic evaluation of the right upper quadrant was performed as a dedicated liver ultrasound study. FINDINGS: Patient was limited somewhat by body habitus affects and limited mobility of the patient. No liver capsule nodularity or focal liver lesions seen. No portal vein abnormality identifiable. Coarsened, increased hepatic echogenicity is present typical for hepatic steatosis. No biliary dilatation. Liver measures 19 cm. IMPRESSION: Fatty infiltration of a prominent size liver measuring 19 cm. No focal liver lesion identifiable. Physical exam: General: Alert, In no apparent distress HEENT: Atraumatic Neck: Supple, 2+ carotid pulse no bruit, No LAD, Without JVD or thyroid abnormality Respiratory: Overall stable. Currently on 10 L. Cardiovascular: Regular rate and rhythm Gastrointestinal: Normal bowel sounds, No tenderness Musculoskeletal: No tenderness Integumentary: No rashes Neurological: Normal gait, Normal speech, Normal strength at 5/5 x4 extr, Normal tone, Normal affect Lymphatics: No axilla or inguinal lymphadenopathy Impression: Dyspnea secondary to bilateral Covid pneumonia with hypoxia Elevated liver function suspect fatty liver Plan: Dyspnea secondary to bilateral Covid pneumonia with hypoxia: Continue to monitor closely. Currently on 10 L per nasal cannula. Continue IV steroids. Pulmonology recommended baricitinib. Will monitor liver function test while on baricitinib. Wean off oxygen to maintain sats above 93%. Encourage ambulation, proning and incentive spirometer. Continue to reassess. Recheck chest x-ray tomorrow. Anticipate improvement over the next 48 to 72 hours. Elevated liver function suspect fatty liver: Will check liver ultrasound. Monitor liver function test. CODE STATUS: Full code DVT prophylaxis: Lovenox Advanced care [id number] minutes: Home at discharge Time Spent Managing Pts Care (In Minutes): 55
[2021-04-13] MEDS ORDERED: FAMOTIDINE 20 MG TAB ONE ×2 (08:02→20:37)
[2021-04-13] MEDS ORDERED: VITAMIN D 1000 UNIT TAB ONE (08:02)
[2021-04-13] MEDS ORDERED: ASCORBIC ACID 500 MG TABLET ONE ×3 (08:02→20:37)
[2021-04-13] MEDS ORDERED: THIAMINE HCL 100 MG TABLET ONE (08:02)
[2021-04-13] MEDS ORDERED: ZINC SULFATE 220 MG CAP ONE (08:02)
[2021-04-13] MEDS ORDERED: ASPIRIN EC 81 MG TAB PO ONE (08:02)
--- NOTE | 2021-04-13 08:22 | RAD REPORT ---
EXAM DESCRIPTION: RAD - Chest Single View - 04/13/2021 5:01 am CLINICAL HISTORY: follow up COVID COMPARISON: Chest Single View dated 04/12/2021; Chest Pa And Lat (2 Views) dated 04/08/2021 FINDINGS: Severe widespread bilateral airspace disease without significant change compared with 03/30. Cardiomegaly.No acute osseous abnormality. No significant pleural effusions or pneumothorax. IMPRESSION: Severe widespread airspace disease which is unchanged.
--- NOTE | 2021-04-13 08:46 | P.CNS ---
Date of Consult: 04/13/21 (TV) Reason for Consult: COVID penumonia Chief Complaint: covid pneumonia History of Present Illness: AGe 35 AW resp failure from COVID penumonia. duration 2 wks Allergies No Known Allergies Allergy (Unverified 04/12/21 07:24) Home Medications: NK [No Home Meds] 04/12/21 - Past Medical/Surgical History -: GERD - Social History Alcohol use: No CD- Drugs: No Caffeine use: No Place of Residence: Home Review of Systems General: Weakness Respiratory: Shortness of Breath Physical Examination Temp Pulse Resp BP Pulse Ox 97.3 F 92 H 20 115/62 89 L 04/13/21 06:29 04/13/21 07:32 04/13/21 07:32 04/13/21 07:32 04/13/21 07:32 General: Alert, Oriented x3, Cooperative, Mild distress - Problems (1) Pneumonia due to COVID-19 virus Current Visit: Yes Status: Acute Plan: Age 35 AW extensive pneumonia due to COVID/ LAbs and Ct rev/ No change/Barcitinib
[2021-04-13] MEDS: ASPIRIN EC 81 MG TAB PO SCH (09:00)
[2021-04-13] MEDS: ZINC SULFATE 220 MG CAP PO SCH (09:00)
[2021-04-13] MEDS: FAMOTIDINE 20 MG TAB PO SCH ×2 (09:00→20:35)
[2021-04-13] MEDS: METHYLPREDNISOLONE 125 MG INJ IV SCH ×3 (09:00→20:35)
[2021-04-13] MEDS: THIAMINE HCL 100 MG TABLET PO SCH (09:00)
[2021-04-13] MEDS: ASCORBIC ACID 500 MG TABLET PO SCH ×4 (09:00→20:35)
[2021-04-13] MEDS: VITAMIN D 1000 UNIT TAB PO SCH (09:00)
[2021-04-13] MEDS ORDERED: METHYLPREDNISOLONE 40 MG INJ ONE ×3 (10:19→20:37)
[2021-04-13] MEDS: BARICITINIB 2 MG TABLET PO SCH (11:00)
[2021-04-13] MEDS: ENOXAPARIN 40 MG/0.4 ML SQ SCH (16:40)
[2021-04-13] MEDS ORDERED: ENOXAPARIN 40 MG/0.4 ML SQ ONE (16:59)
--- NOTE | 2021-04-14 06:28 | P.PN ---
Subjective Date of Service: 04/14/21 Chief Complaint: covid pneumonia Subjective: Improving (Patient reports improvement. Patient on 15 L per nasal cannula. Patient sitting at bedside.) Physical Examination - Vital Signs Temperature: 98.5 F Blood Pressure: 94/55 Pulse: 100 Respirations: 20 Pulse Ox (%): 90 Assessment & Plan Discharge Plan: Home Plan to discharge in: Greater than 2 days Physician Review Additional Text: COVID: Positive, unvaccinated CT scan: COMPARISON: CT of the chest May 30, 2020 FINDINGS: PULMONARY ARTERIES: There are no obvious filling defects identified within the pulmonary arteries to suggest pulmonary embolism. AORTA: No acute findings. No thoracic aortic aneurysm. LUNGS: Extensive groundglass opacities are noted throughout the lungs. There are slightly low lung volumes. The tracheobronchial tree is widely patent. PLEURAL SPACE: Unremarkable. No significant effusion. No pneumothorax. HEART: Unremarkable. No cardiomegaly. No significant pericardial effusion. No evidence of RV dysfunction. BONES/JOINTS: No acute fracture. No dislocation. SOFT TISSUES: Unremarkable. LYMPH NODES: Unremarkable. No enlarged lymph nodes. LIVER: The liver is enlarged and diffusely fatty. IMPRESSION: 1. Commonly reported imaging features of (COVID-19 or viral) pneumonia are present. Other processes such as influenza pneumonia and organizing pneumonia, as can be seen with drug toxicity and connective tissue disease, can cause a similar imaging pattern. [id number] 2. No evidence of pulmonary embolism. Follow-up chest x-ray 04/13/2021: COMPARISON: Chest Single View dated 04/12/2021; Chest Pa And Lat (2 Views) dated 04/08/2021 FINDINGS: Severe widespread bilateral airspace disease without significant change compared with 04/12/2021. Cardiomegaly.No acute osseous abnormality. No significant pleural effusions or pneumothorax. IMPRESSION: Severe widespread airspace disease which is unchanged. Liver US: COMPARISON: <Comparisons> TECHNIQUE: Sonographic evaluation of the right upper quadrant was performed as a dedicated liver ultrasound study. FINDINGS: Patient was limited somewhat by body habitus affects and limited mobility of the patient. No liver capsule nodularity or focal liver lesions seen. No portal vein abnormality identifiable. Coarsened, increased hepatic echogenicity is present typical for hepatic steatosis. No biliary dilatation. Liver measures 19 cm. IMPRESSION: Fatty infiltration of a prominent size liver measuring 19 cm. No focal liver lesion identifiable. Physical exam: General: Alert, In no apparent distress HEENT: Atraumatic Neck: Supple, 2+ carotid pulse no bruit, No LAD, Without JVD or thyroid abnormality Respiratory: Patient at bedside. Overall stable. Currently on 15 L per nasal cannula Cardiovascular: Regular rate and rhythm Gastrointestinal: Normal bowel sounds, No tenderness Musculoskeletal: No tenderness Integumentary: No rashes Neurological: Normal gait, Normal speech, Normal strength at 5/5 x4 extr, Normal tone, Normal affect Lymphatics: No axilla or inguinal lymphadenopathy Impression: Dyspnea secondary to bilateral Covid pneumonia with hypoxia Elevated liver function with fatty liver Hyponatremia Plan: Dyspnea secondary to bilateral Covid pneumonia with hypoxia: Patient clinically reports improvement. Increase oxygen intake noted at 15 L per nasal cannula. Respiratory to continue to wean off to maintain sats above 93%. Continue IV steroids, supplements and baricitinib. Will continue to monitor liver function tests on baricitinib. Encourage ambulation, proning and incentive spirometer. Recheck chest x-ray tomorrow. Anticipate improvement over the next 72 hours. Elevated liver function with fatty liver: Liver ultrasound shows fatty liver. Will continue to monitor liver function while on baricitinib. Hyponatremia: Improved. Encourage oral intake. Continue to monitor electrolytes. CODE STATUS: Full code DVT prophylaxis: Lovenox Advanced care [id number] minutes: Home at discharge Time Spent Managing Pts Care (In Minutes): 55
[2021-04-14] MEDS: ZINC SULFATE 220 MG CAP PO SCH (09:00)
[2021-04-14] MEDS: ASPIRIN EC 81 MG TAB PO SCH (09:00)
[2021-04-14] MEDS: BARICITINIB 2 MG TABLET PO SCH (09:00)
[2021-04-14] MEDS: METHYLPREDNISOLONE 125 MG INJ IV SCH ×3 (09:00→21:00)
[2021-04-14] MEDS: FAMOTIDINE 20 MG TAB PO SCH ×2 (09:00→21:00)
[2021-04-14] MEDS: ASCORBIC ACID 500 MG TABLET PO SCH ×4 (09:00→21:00)
[2021-04-14] MEDS: VITAMIN D 1000 UNIT TAB PO SCH (09:00)
[2021-04-14] MEDS: THIAMINE HCL 100 MG TABLET PO SCH (09:00)
[2021-04-14] MEDS ORDERED: METHYLPREDNISOLONE 125 MG INJ ONE ×3 (09:36→23:04)
[2021-04-14] MEDS ORDERED: ASCORBIC ACID 500 MG TABLET ONE ×3 (09:36→23:04)
[2021-04-14] MEDS ORDERED: THIAMINE HCL 100 MG TABLET ONE (09:36)
[2021-04-14] MEDS ORDERED: ZINC SULFATE 220 MG CAP ONE (09:37)
[2021-04-14] MEDS ORDERED: VITAMIN D 1000 UNIT TAB ONE (09:37)
[2021-04-14] MEDS ORDERED: ASPIRIN EC 81 MG TAB PO ONE (09:37)
[2021-04-14] MEDS ORDERED: FAMOTIDINE 20 MG TAB ONE ×2 (09:38→23:04)
[2021-04-14] MEDS ORDERED: ENOXAPARIN 40 MG/0.4 ML SQ ONE (16:51)
[2021-04-14] MEDS: ENOXAPARIN 40 MG/0.4 ML SQ SCH (17:00)
[2021-04-15 03:52] LABS: Absolute Lymphocytes (CBC) 0.6 K/uL (0.7-4.9); Lymphocytes % 6.9 % (15.3-44.8); MPV 7.7 fL (7.6-11.3); RBC Red Blood Cell Count 4.35 M/uL (4.33-5.43)
[2021-04-15 04:09] LABS: Albumin 2.8 g/dL (3.4-5.0); Bilirubin Total 0.7 mg/dL (0.2-1.0); C-Reactive Protein 13.3 mg/L (<3.00); Ferritin 653.9 ng/mL (26-388); Magnesium 2.6 mg/dL (1.8-2.4); Protein, Total 6.9 g/dL (6.4-8.2)
[2021-04-15 05:04] LABS: Blood Morphology Comment NOT SEEN (NOT SEEN); Platelet Estimate ADEQ
--- NOTE | 2021-04-15 06:09 | P.PN ---
Subjective Date of Service: 04/15/21 Chief Complaint: covid pneumonia Subjective: Other (Patient reports some improvement. Currently anywhere between 7 to 15 L.) Physical Examination - Vital Signs Temperature: 98.8 F Blood Pressure: 131/62 Pulse: 102 Respirations: 18 Pulse Ox (%): 87 Assessment & Plan Discharge Plan: Home Plan to discharge in: Greater than 2 days Physician Review Additional Text: COVID: Positive, unvaccinated CT scan: COMPARISON: CT of the chest May 30, 2020 FINDINGS: PULMONARY ARTERIES: There are no obvious filling defects identified within the pulmonary arteries to suggest pulmonary embolism. AORTA: No acute findings. No thoracic aortic aneurysm. LUNGS: Extensive groundglass opacities are noted throughout the lungs. There are slightly low lung volumes. The tracheobronchial tree is widely patent. PLEURAL SPACE: Unremarkable. No significant effusion. No pneumothorax. HEART: Unremarkable. No cardiomegaly. No significant pericardial effusion. No evidence of RV dysfunction. BONES/JOINTS: No acute fracture. No dislocation. SOFT TISSUES: Unremarkable. LYMPH NODES: Unremarkable. No enlarged lymph nodes. LIVER: The liver is enlarged and diffusely fatty. IMPRESSION: 1. Commonly reported imaging features of (COVID-19 or viral) pneumonia are present. Other processes such as influenza pneumonia and org anizing pneumonia, as can be seen with drug toxicity and connective tissue disease, can cause a similar imaging pattern. [id number] 2. No evidence of pulmonary embolism. Follow-up chest x-ray 04/13/2021: COMPARISON: Chest Single View dated 04/12/2021; Chest Pa And Lat (2 Views) dated 04/08/2021 FINDINGS: Severe widespread bilateral airspace disease without significant downs ge compared with 04/12/2021. Cardiomegaly.No acute osseous abnormality. No significant pleural effusions or pneumothorax. IMPRESSION: Severe widespread airspace disease which is unchanged. Liver US: COMPARISON: <Comparisons> TECHNIQUE: Sonographic evaluation of the right upper quadrant was performed as a dedicated liver ultrasound study. FINDINGS: Patient was limited somewhat by body habitus affects and limited mobility of the patient. No liver capsule nodularity or focal liver lesions seen. No portal vein abnormality identifiable. Coarsened, increased hepatic echogenicity is present typical for hepatic steatosis. No biliary dilatation. Liver measures 19 cm. IMPRESSION: Fatty infiltration of a prominent size liver measuring 19 cm. No focal liver lesion identifiable. Physical exam: General: Alert, In no apparent distress HEENT: Atraumatic Neck: Supple, 2+ carotid pulse no bruit, No LAD, Without JVD or thyroid abnormality Respiratory: Patient at bedside. Overall stable. Currently on 15 L per nasal cannula Cardiovascular: Regular rate and rhythm Gastrointestinal: Normal bowel sounds, No tenderness Musculoskeletal: No tenderness Integumentary: No rashes Neurological: Normal gait, Normal speech, Normal strength at 5/5 x4 extr, Normal tone, Normal affect Lymphatics: No axilla or inguinal lymphadenopathy Impression: Dyspnea secondary to bilateral Covid pneumonia with hypoxia Elevated liver function with fatty liver Hyponatremia Plan: Dyspnea secondary to bilateral Covid pneumonia with hypoxia: Patient overall stable. Patient clinically reports improvement. Stable on 15 L per nasal cannula. Respiratory to continue to wean off to maintain sats above 93%. Continue IV steroids, supplements and baricitinib. Will continue to monitor liver function tests on baricitinib. LFTs remain slightly elevated. Encourage ambulation, proning and incentive spirometer. Anticipate improvement over the next 72 hours. Elevated liver function with fatty liver: LFTs remain slightly elevated. Liver ultrasound shows fatty liver. Will continue to monitor liver function while on baricitinib. Hyponatremia: Resolved. Encourage oral intake. Continue to monitor electrolytes. CODE STATUS: Full code DVT prophylaxis: Lovenox Advanced care [id number] minutes: Home at discharge Time Spent Managing Pts Care (In Minutes): 55
[2021-04-15] MEDS: VITAMIN D 1000 UNIT TAB PO SCH (08:45)
[2021-04-15] MEDS: ZINC SULFATE 220 MG CAP PO SCH (08:45)
[2021-04-15] MEDS: METHYLPREDNISOLONE 125 MG INJ IV SCH ×3 (08:45→21:32)
[2021-04-15] MEDS: ASCORBIC ACID 500 MG TABLET PO SCH ×4 (08:45→21:33)
[2021-04-15] MEDS: THIAMINE HCL 100 MG TABLET PO SCH (08:45)
--- NOTE | 2021-04-15 08:56 | RAD REPORT ---
EXAM DESCRIPTION: RAD - Chest Single View - 04/15/2021 4:38 am CLINICAL HISTORY: Follow-up Covid Chest pain. COMPARISON: Chest Single View dated 04/13/2021; Chest Single View dated 04/12/2021; Chest Pa And Lat ( 2 Views) dated 04/08/2021 FINDINGS: Portable technique limits examination quality. Since 04/13/2021, there has been fractional improvement in lung aeration bilaterally. The heart is mi ldly to moderately enlarged in size. No displaced fractures. IMPRESSION: Mild improvement is seen in lung aeration since comparative study.
[2021-04-15] MEDS: BARICITINIB 2 MG TABLET PO SCH (10:07)
[2021-04-15] MEDS: ASPIRIN EC 81 MG TAB PO SCH (10:07)
[2021-04-15] MEDS: FAMOTIDINE 20 MG TAB PO SCH ×2 (10:08→21:32)
[2021-04-15] MEDS: ENOXAPARIN 40 MG/0.4 ML SQ SCH (17:00)
[2021-04-15] MEDS: HYDROCODONE/APAP 7.5/325 MG TAB PO PRN (21:34)
[2021-04-15] MEDS: MELATONIN 5 MG TABLET PO PRN (21:34)
[2021-04-15] MEDS: GUAIFENESIN/CODEINE 5ML UCUP PO PRN (21:34)
[2021-04-16 04:27] LABS: Absolute Lymphocytes (CBC) 0.7 K/uL (0.7-4.9); Basophils % 0.1 % (0-1.3); Hematocrit 37.5 % (39.6-49.0); Lymphocytes % 6.3 % (15.3-44.8); MPV 7.5 fL (7.6-11.3); RBC Red Blood Cell Count 4.37 M/uL (4.33-5.43)
[2021-04-16 04:39] LABS: Albumin 2.7 g/dL (3.4-5.0); Bilirubin Total 0.8 mg/dL (0.2-1.0); C-Reactive Protein 7.07 mg/L (<3.00); Ferritin 658.1 ng/mL (26-388); Magnesium 2.3 mg/dL (1.8-2.4); Potassium 4.1 mmol/L (3.5-5.1); Protein, Total 6.7 g/dL (6.4-8.2)
--- NOTE | 2021-04-16 06:13 | P.PN ---
Subjective Date of Service: 04/16/21 Chief Complaint: covid pneumonia Subjective: Other (Patient continues to improve. Patient down to 8 L per nasal cannula. Some anxiety noted.) Physical Examination - Vital Signs Temperature: 97.1 F Blood Pressure: 137/74 Pulse: 72 Respirations: 20 Pulse Ox (%): 91 Assessment & Plan Discharge Plan: Home Plan to discharge in: 72 Hours Physician Review Additional Text: COVID: Positive, unvaccinated CT scan: COMPARISON: CT of the chest May 30, 2020 FINDINGS: PULMONARY ARTERIES: There are no obvious filling defects identified within the pulmonary arteries to suggest pulmonary embolism. AORTA: No acute findings. No thoracic aortic aneurysm. LUNGS: Extensive groundglass opacities are noted throughout the lungs. There are slightly low lung volumes. The tracheobronchial tree is widely patent. PLEURAL SPACE: Unremarkable. No significant effusion. No pneumothorax. HEART: Unremarkable. No cardiomegaly. No significant pericardial effusion. No evidence of RV dysfunction. BONES/JOINTS: No acute fracture. No dislocation. SOFT TISSUES: Unremarkable. LYMPH NODES: Unremarkable. No enlarged lymph nodes. LIVER: The liver is enlarged and diffusely fatty. IMPRESSION: 1. Commonly reported imaging features of (COVID-19 or viral) pneumonia are present. Other processes such as influenza pneumonia and organizing pneumonia, as can be seen with drug toxicity and connective tissue disease, can cause a similar imaging pattern. [id number] 2. No evidence of pulmonary embolism. Follow-up chest x-ray 04/13/2021: COMPARISON: Chest Single View dated 04/12/2021; Chest Pa And Lat (2 Views) dated 04/08/2021 FINDINGS: Severe widespread bilateral airspace disease without significant change compared with 04/12/2021. Cardiomegaly.No acute osseous abnormality. No significant pleural effusions or pneumothorax. IMPRESSION: Severe widespread airspace disease which is unchanged. Liver US: COMPARISON: <Comparisons> TECHNIQUE: Sonographic evaluation of the right upper quadrant was performed as a dedicated liver ultrasound study. FINDINGS: Patient was limited somewhat by body habitus affects and limited mobility of the patient. No liver capsule nodularity or focal liver lesions seen. No portal vein abnormality identifiable. Coarsened, increased hepatic echogenicity is present typical for hepatic steatosis. No biliary dilatation. Liver measures 19 cm. IMPRESSION: Fatty infiltration of a prominent size liver measuring 19 cm. No focal liver lesion identifiable. Physical exam: General: Alert, In no apparent distress HEENT: Atraumatic Neck: Supple, 2+ carotid pulse no bruit, No LAD, Without JVD or thyroid abnormality Respiratory: Patient at bedside. Overall stable. Down to 8 L Cardiovascular: Regular rate and rhythm Gastrointestinal: Normal bowel sounds, No tenderness Musculoskeletal: No tenderness Integumentary: No rashes Neurological: Normal gait, Normal speech, Normal strength at 5/5 x4 extr, Normal tone, Normal affect Lymphatics: No axilla or inguinal lymphadenopathy Impression: Dyspnea secondary to bilateral Covid pneumonia with hypoxia Elevated liver function with fatty liver Hyponatremia Anxiety Plan: Dyspnea secondary to bilateral Covid pneumonia with hypoxia: Patient overall stable. Patient reports some anxiety. We will add Xanax as needed. Patient clinically improved. Down to 8 L. Respiratory to continue to wean off to maintain sats above 93%. Will decrease IV steroids. Continue with IV supplements and baricitinib. Will continue to monitor liver function tests on baricitinib. LFTs remain slightly elevated. Encourage ambulation, proning and incentive spirometer. Anticipate improvement over the next 72 hours. Elevated liver function with fatty liver: LFTs remain slightly elevated. Liver ultrasound shows fatty liver. Will continue to monitor liver function while on baricitinib. Hyponatremia: Resolved. Encourage oral intake. Continue to monitor electrolytes. Anxiety: We will decrease IV steroids. Continue with Xanax as needed CODE STATUS: Full code DVT prophylaxis: Lovenox Advanced care [id number] minutes: Home at discharge Time Spent Managing Pts Care (In Minutes): 55
[2021-04-16] MEDS: VITAMIN D 1000 UNIT TAB PO SCH (09:01)
[2021-04-16] MEDS: ASCORBIC ACID 500 MG TABLET PO SCH ×4 (09:02→22:01)
[2021-04-16] MEDS: ZINC SULFATE 220 MG CAP PO SCH (09:02)
[2021-04-16] MEDS: ASPIRIN EC 81 MG TAB PO SCH (09:02)
[2021-04-16] MEDS: THIAMINE HCL 100 MG TABLET PO SCH (09:02)
[2021-04-16] MEDS: FAMOTIDINE 20 MG TAB PO SCH ×2 (09:02→22:00)
[2021-04-16] MEDS: METHYLPREDNISOLONE 125 MG INJ IV SCH ×3 (09:03→22:00)
[2021-04-16] MEDS: BARICITINIB 2 MG TABLET PO SCH (09:05)
[2021-04-16] MEDS: ALPRAZOLAM 0.25 MG TABLET PO PRN ×2 (14:12→22:01)
[2021-04-16] MEDS: ENOXAPARIN 40 MG/0.4 ML SQ SCH (17:39)
[2021-04-16] MEDS: HYDROCODONE/APAP 7.5/325 MG TAB PO PRN (22:01)
[2021-04-16] MEDS: MELATONIN 5 MG TABLET PO PRN (22:01)
[2021-04-16] MEDS: GUAIFENESIN/CODEINE 5ML UCUP PO PRN (22:02)
[2021-04-17 03:55] LABS: Absolute Lymphocytes (CBC) 0.5 K/uL (0.7-4.9); Basophils % 0.1 % (0-1.3); Hematocrit 37.1 % (39.6-49.0); Lymphocytes % 5.1 % (15.3-44.8); MPV 7.4 fL (7.6-11.3); RBC Red Blood Cell Count 4.31 M/uL (4.33-5.43)
[2021-04-17 04:21] LABS: ALT/SGPT 220 U/L (12-78); AST/SGOT 69 U/L (15-37); Albumin 2.7 g/dL (3.4-5.0); Alkaline Phosphatase 43 U/L (45-117); BUN Blood Urea Nitrogen 24 mg/dL (7-18); Bicarbonate 29 mmol/L (21-32); Bilirubin Total 0.8 mg/dL (0.2-1.0); C-Reactive Protein 5.14 mg/L (<3.00); Glucose Level 137 mg/dL (74-106); Magnesium 2.1 mg/dL (1.8-2.4); Potassium 4.7 mmol/L (3.5-5.1); Protein, Total 6.5 g/dL (6.4-8.2); Sodium Level 135 mmol/L (136-145)
[2021-04-17] MEDS: ALPRAZOLAM 0.25 MG TABLET PO PRN ×3 (05:08→19:49)
--- NOTE | 2021-04-17 06:16 | P.PN ---
Subjective Date of Service: 04/17/21 Chief Complaint: covid pneumonia Subjective: Improving Physical Examination - Vital Signs Temperature: 97.4 F Blood Pressure: 115/73 Pulse: 72 Respirations: 16 Pulse Ox (%): 94 Assessment & Plan Discharge Plan: Home Plan to discharge in: 48 Hours Physician Review Additional Text: COVID: Positive, unvaccinated CT scan: COMPARISON: CT of the chest May 30, 2020 FINDINGS: PULMONARY ARTERIES: There are no obvious filling defects identified within the pulmonary arteries to suggest pulmonary embolism. AORTA: No acute findings. No thoracic aortic aneurysm. LUNGS: Extensive groundglass opacities are noted throughout the lungs. There are slightly low lung volumes. The tracheobronchial tree is widely patent. PLEURAL SPACE: Unremarkable. No significant effusion. No pneumothorax. HEART: Unremarkable. No cardiomegaly. No significant pericardial effusion. No evidence of RV dysfunction. BONES/JOINTS: No acute fracture. No dislocation. SOFT TISSUES: Unremarkable. LYMPH NODES: Unremarkable. No enlarged lymph nodes. LIVER: The liver is enlarged and diffusely fatty. IMPRESSION: 1. Commonly reported imaging features of (COVID-19 or viral) pneumonia are present. Other processes such as influenza pneumonia and organizing pneumonia, as can be seen with drug toxicity and connective tissue disease, can cause a similar imaging pattern. [id number] 2. No evidence of pulmonary embolism. Follow-up chest x-ray 04/13/2021: COMPARISON: Chest Single View dated 04/12/2021; Chest Pa And Lat (2 Views) dated 04/08/2021 FINDINGS: Severe widespread bilateral airspace disease without significant change compared with 04/12/2021. Cardiomegaly.No acute osseous abnormality. No significant pleural effusions or pneumothorax. IMPRESSION: Severe widespread airspace disease which is unchanged. Liver US: COMPARISON: <Comparisons> TECHNIQUE: Sonographic evaluation of the right upper quadrant was performed as a dedicated liver ultrasound study. FINDINGS: Patient was limited somewhat by body habitus affects and limited mobility of the patient. No liver capsule nodularity or focal liver lesions seen. No portal vein abnormality identifiable. Coarsened, increased hepatic echogenicity is present typical for hepatic steatosis. No biliary dilatation. Liver measures 19 cm. IMPRESSION: Fatty infiltration of a prominent size liver measuring 19 cm. No focal liver lesion identifiable. Physical exam: General: Alert, In no apparent distress HEENT: Atraumatic Neck: Supple, 2+ carotid pulse no bruit, No LAD, Without JVD or thyroid abnormality Respiratory: Patient at bedside. Overall stable. Down to 8 L Cardiovascular: Regular rate and rhythm Gastrointestinal: Normal bowel sounds, No tenderness Musculoskeletal: No tenderness Integumentary: No rashes Neurological: Normal gait, Normal speech, Normal strength at 5/5 x4 extr, Normal tone, Normal affect Lymphatics: No axilla or inguinal lymphadenopathy Impression: Dyspnea secondary to bilateral Covid pneumonia with hypoxia Elevated liver function with fatty liver Hyponatremia Anxiety Plan: Dyspnea secondary to bilateral Covid pneumonia with hypoxia: Patient overall stable. Stable on Xanax as needed. Patient clinically improved. Down to 8 L. Respiratory to continue to wean off to maintain sats above 93%. Continue IV steroids. Continue with IV supplements and baricitinib. Will continue to monitor liver function tests on baricitinib. LFTs remain slightly elevated. Encourage ambulation, proning and incentive spirometer. Anticipate improvement over the next 72 hours. Elevated liver function with fatty liver: LFTs remain slightly elevated. Liver ultrasound shows fatty liver. Will continue to monitor liver function while on baricitinib. Hyponatremia: Resolved. Encourage oral intake. Continue to monitor electrolytes. Anxiety: Continue with Xanax as needed CODE STATUS: Full code DVT prophylaxis: Lovenox Advanced care [id number] minutes: Home at discharge Time Spent Managing Pts Care (In Minutes): 55
--- NOTE | 2021-04-17 07:24 | RAD REPORT ---
EXAM DESCRIPTION: [place] Single View04/17/2021 7:09 am CLINICAL HISTORY: Shortness of breath COMPARISON: April 15 FINDINGS: No significant change diffuse bilateral pulmonary opacities. Heart remains enlarged IMPRESSION: No significant change diffuse bilateral pulmonary opacities likely pneumonia
[2021-04-17] MEDS: THIAMINE HCL 100 MG TABLET PO SCH (09:24)
[2021-04-17] MEDS: METHYLPREDNISOLONE 125 MG INJ IV SCH ×2 (09:24→19:51)
[2021-04-17] MEDS: ZINC SULFATE 220 MG CAP PO SCH (09:24)
[2021-04-17] MEDS: ASPIRIN EC 81 MG TAB PO SCH (09:24)
[2021-04-17] MEDS: VITAMIN D 1000 UNIT TAB PO SCH (09:24)
[2021-04-17] MEDS: ASCORBIC ACID 500 MG TABLET PO SCH ×4 (09:24→19:50)
[2021-04-17] MEDS: FAMOTIDINE 20 MG TAB PO SCH ×2 (09:24→19:49)
[2021-04-17] MEDS: BARICITINIB 2 MG TABLET PO SCH (09:25)
--- NOTE | 2021-04-17 14:14 | P.PN ---
Subjective Date of Service: 04/17/21 Chief Complaint: covid pneumonia Subjective: Improving (O2 requirement declining) Review of Systems General: Weakness Respiratory: Shortness of Breath Physical Examination - Vital Signs Temperature: 97.7 F Blood Pressure: 130/63 Pulse: 100 Respirations: 16 Pulse Ox (%): 90 - Physical Exam General: Alert, In no apparent distress, Oriented x3, Cooperative Assessment & Plan - Problems (Diagnosis) (1) Pneumonia due to COVID-19 virus Current Visit: Yes Status: Acute Plan: Improving/ on 8 l of O2/ max therappy DC palnning
[2021-04-17] MEDS: IVERMECTIN 3 MG TABLET PO SCH (17:08)
[2021-04-17] MEDS: ENOXAPARIN 40 MG/0.4 ML SQ SCH (17:08)
[2021-04-17] MEDS: HYDROCODONE/APAP 7.5/325 MG TAB PO PRN (19:50)
[2021-04-17] MEDS: GUAIFENESIN/CODEINE 5ML UCUP PO PRN (19:50)
[2021-04-17] MEDS: MELATONIN 5 MG TABLET PO PRN (19:50)
--- NOTE | 2021-04-18 06:22 | P.PN ---
Subjective Date of Service: 04/18/21 Chief Complaint: covid pneumonia Subjective: Other (Patient at 7 L this morning.) Physical Examination - Vital Signs Temperature: 97.4 F Blood Pressure: 146/69 Pulse: 63 Respirations: 16 Pulse Ox (%): 90 Assessment & Plan Discharge Plan: Home Plan to discharge in: Greater than 2 days Physician Review Additional Text: COVID: Positive, unvaccinated CT scan: COMPARISON: CT of the chest May 30, 2020 FINDINGS: PULMONARY ARTERIES: There are no obvious filling defects identified within the pulmonary arteries to suggest pulmonary embolism. AORTA: No acute findings. No thoracic aortic aneurysm. LUNGS: Extensive groundglass opacities are noted throughout the lungs. There are slightly low lung volumes. The tracheobronchial tree is widely patent. PLEURAL SPACE: Unremarkable. No significant effusion. No pneumothorax. HEART: Unremarkable. No cardiomegaly. No significant pericardial effusion. No evidence of RV dysfunction. BONES/JOINTS: No acute fracture. No dislocation. SOFT TISSUES: Unremarkable. LYMPH NODES: Unremarkable. No enlarged lymph nodes. LIVER: The liver is enlarged and diffusely fatty. IMPRESSION: 1. Commonly reported imaging features of (COVID-19 or viral) pneumonia are present. Other processes such as influenza pneumonia and organizing pneumonia, as can be seen with drug toxicity and connective tissue disease, can cause a similar imaging pattern. [id number] 2. No evidence of pulmonary embolism. Follow-up chest x-ray 04/13/2021: COMPARISON: Chest Single View dated 04/12/2021; Chest Pa And Lat (2 Views) dated 04/08/2021 FINDINGS: Severe widespread bilateral airspace disease without significant change compared with 04/12/2021. Cardiomegaly.No acute osseous abnormality. No significant pleural effusions or pneumothorax. IMPRESSION: Severe widespread airspace disease which is unchanged. Liver US: COMPARISON: <Comparisons> TECHNIQUE: Sonographic evaluation of the right upper quadrant was performed as a dedicated liver ultrasound study. FINDINGS: Patient was limited somewhat by body habitus affects and limited mobility of the patient. No liver capsule nodularity or focal liver lesions seen. No portal vein abnormality identifiable. Coarsened, increased hepatic echogenicity is present typical for hepatic steatosis. No biliary dilatation. Liver measures 19 cm. IMPRESSION: Fatty infiltration of a prominent size liver measuring 19 cm. No focal liver lesion identifiable. Physical exam: General: Alert, In no apparent distress HEENT: Atraumatic Neck: Supple, 2+ carotid pulse no bruit, No LAD, Without JVD or thyroid abnormality Respiratory: Patient at bedside. Overall stable. Patient down to 7 L Cardiovascular: Regular rate and rhythm Gastrointestinal: Normal bowel sounds, No tenderness Musculoskeletal: No tenderness Integumentary: No rashes Neurological: Normal gait, Normal speech, Normal strength at 5/5 x4 extr, Normal tone, Normal affect Lymphatics: No axilla or inguinal lymphadenopathy Impression: Dyspnea secondary to bilateral Covid pneumonia with hypoxia Elevated liver function with fatty liver Hyponatremia Anxiety Plan: Dyspnea secondary to bilateral Covid pneumonia with hypoxia: Patient down to 7 L this morning. CRP and ferritin improved. Continue to wean off oxygen. Maintain sats above 93%. Continue IV steroids, supplements and baricitinib. LFTs remain slightly elevated but will continue to monitor. Encourage ambulation, proning and incentive spirometer. Medication for anxiety provided. Continue with pulmonology recommendation. Anticipate improvement. I will turn to service over to the hospitalist team tomorrow. I will go plan of care with him. Elevated liver function with fatty liver: LFTs remain slightly elevated. Liver ultrasound shows fatty liver. Will continue to monitor liver function while on baricitinib. Hyponatremia: Resolved. Encourage oral intake. Continue to monitor electrolytes. Anxiety: Continue with Xanax as needed CODE STATUS: Full code DVT prophylaxis: Lovenox Advanced care [id number] minutes: Home at discharge Time Spent Managing Pts Care (In Minutes): 55
[2021-04-18] MEDS: ALPRAZOLAM 0.25 MG TABLET PO PRN ×2 (06:47→14:30)
[2021-04-18] MEDS: THIAMINE HCL 100 MG TABLET PO SCH (08:59)
[2021-04-18] MEDS: METHYLPREDNISOLONE 125 MG INJ IV SCH ×2 (08:59→19:48)
[2021-04-18] MEDS: ZINC SULFATE 220 MG CAP PO SCH (09:00)
[2021-04-18] MEDS: ASCORBIC ACID 500 MG TABLET PO SCH ×4 (09:00→19:49)
[2021-04-18] MEDS: VITAMIN D 1000 UNIT TAB PO SCH (09:00)
[2021-04-18] MEDS: FAMOTIDINE 20 MG TAB PO SCH ×2 (09:00→19:48)
[2021-04-18] MEDS: BARICITINIB 2 MG TABLET PO SCH (09:03)
[2021-04-18] MEDS: ASPIRIN EC 81 MG TAB PO SCH (12:48)
[2021-04-18] MEDS: ENOXAPARIN 40 MG/0.4 ML SQ SCH (17:32)
[2021-04-18] MEDS: MELATONIN 5 MG TABLET PO PRN (19:49)
[2021-04-18] MEDS: HYDROCODONE/APAP 7.5/325 MG TAB PO PRN (19:49)
[2021-04-19 04:35] LABS: Absolute Lymphocytes (CBC) 1.2 K/uL (0.7-4.9); Basophils % 0.1 % (0-1.3); Hematocrit 41.6 % (39.6-49.0); Lymphocytes % 9.4 % (15.3-44.8); MPV 7.6 fL (7.6-11.3); RBC Red Blood Cell Count 4.83 M/uL (4.33-5.43)
[2021-04-19 05:21] LABS: AST/SGOT 77 U/L (15-37); Alkaline Phosphatase 42 U/L (45-117); BUN Blood Urea Nitrogen 23 mg/dL (7-18); Bicarbonate 28 mmol/L (21-32); Bilirubin Total 0.7 mg/dL (0.2-1.0); Glucose Level 136 mg/dL (74-106); Potassium 5.1 mmol/L (3.5-5.1); Sodium Level 135 mmol/L (136-145)
[2021-04-19 05:24] LABS: C-Reactive Protein < 2.90 mg/L (<3.00)
[2021-04-19 05:25] LABS: ALT/SGPT 370 U/L (12-78)
--- NOTE | 2021-04-19 07:19 | RAD REPORT ---
EXAM DESCRIPTION: [place] Single View04/19/2021 6:56 am CLINICAL HISTORY: Chest pain COMPARISON: April 17, 2021 FINDINGS: No significant change extensive bilateral pulmonary opacities. Heart is enlarged IMPRESSION: No significant change bilateral pneumonia
[2021-04-19 07:28] LABS: Ferritin 800.2 ng/mL (26-388)
[2021-04-19] MEDS: VITAMIN D 1000 UNIT TAB PO SCH (08:50)
[2021-04-19] MEDS: ASPIRIN EC 81 MG TAB PO SCH (08:51)
[2021-04-19] MEDS: ZINC SULFATE 220 MG CAP PO SCH (08:52)
[2021-04-19] MEDS: ASCORBIC ACID 500 MG TABLET PO SCH ×4 (08:52→19:44)
[2021-04-19] MEDS: FAMOTIDINE 20 MG TAB PO SCH ×2 (08:52→19:44)
[2021-04-19] MEDS: THIAMINE HCL 100 MG TABLET PO SCH (08:52)
[2021-04-19] MEDS: METHYLPREDNISOLONE 125 MG INJ IV SCH ×2 (08:52→19:44)
[2021-04-19] MEDS: BARICITINIB 2 MG TABLET PO SCH (08:56)
[2021-04-19] MEDS: ALPRAZOLAM 0.25 MG TABLET PO PRN (14:41)
[2021-04-19] MEDS: IVERMECTIN 3 MG TABLET PO SCH (14:41)
--- NOTE | 2021-04-19 18:05 | P.PN ---
Subjective Date of Service: 04/19/21 Patient feeling well with no new complaints. Clinical symptoms are improving. He feels much better. Review of Systems 10-point ROS is otherwise unremarkable Physical Examination - Vital Signs Temperature: 97.9 F Blood Pressure: 120/63 Pulse: 79 Respirations: 26 Pulse Ox (%): 95 - Physical Exam General: Alert, In no apparent distress, Oriented x3 HEENT: Atraumatic, PERRLA, EOMI Neck: Supple, JVD not distended Respiratory: Clear to auscultation bilaterally, Normal air movement Cardiovascular: Regular rate/rhythm, Normal S1 S2 Gastrointestinal: Normal bowel sounds, No tenderness Musculoskeletal: No tenderness Integumentary: No rashes Neurological: Normal speech, Normal tone, Normal affect Lymphatics: No axilla or inguinal lymphadenopathy - Studies Medications List Reviewed: Yes Assessment & Plan - Problems (Diagnosis) (1) Pneumonia due to COVID-19 virus Current Visit: Yes Status: Acute - Plan 1. Continue with IV steroids 2. Monitor inflammatory markers 3. Repeat chest x-ray 4. O2 per protocol-continue to wean at this time 5. Continue with albuterol inhaler therapy; also supportive care 6. GI and DVT prophylaxis Discharge Plan: Home Plan to discharge in: Greater than 2 days - Advance Directives Does patient have a Living Will: No Does patient have a Durable POA for Healthcare: No - Code Status/Comfort Care Code Status Assessed: Yes Code Status: Full Code Critical Care: No Time Spent Managing PTS Care (In Minutes): 35
[2021-04-19] MEDS: ENOXAPARIN 40 MG/0.4 ML SQ SCH (18:40)
[2021-04-20 04:20] LABS: Absolute Lymphocytes (CBC) 1.3 K/uL (0.7-4.9); Basophils % 0.2 % (0-1.3); Hematocrit 40.1 % (39.6-49.0); Lymphocytes % 9.6 % (15.3-44.8); MPV 7.3 fL (7.6-11.3); RBC Red Blood Cell Count 4.63 M/uL (4.33-5.43)
[2021-04-20 04:49] LABS: AST/SGOT 144 U/L (15-37); Albumin 2.8 g/dL (3.4-5.0); Alkaline Phosphatase 41 U/L (45-117); BUN Blood Urea Nitrogen 22 mg/dL (7-18); Bicarbonate 28 mmol/L (21-32); Bilirubin Total 0.8 mg/dL (0.2-1.0); Ferritin 988.1 ng/mL (26-388); Glucose Level 125 mg/dL (74-106); Magnesium 1.9 mg/dL (1.8-2.4); Potassium 4.7 mmol/L (3.5-5.1); Protein, Total 6.5 g/dL (6.4-8.2); Sodium Level 135 mmol/L (136-145)
[2021-04-20 04:50] LABS: ALT/SGPT 630 U/L (12-78); C-Reactive Protein < 2.90 mg/L (<3.00)
[2021-04-20] MEDS: VITAMIN D 1000 UNIT TAB PO SCH (08:58)
[2021-04-20] MEDS: ZINC SULFATE 220 MG CAP PO SCH (08:58)
[2021-04-20] MEDS: FAMOTIDINE 20 MG TAB PO SCH ×2 (08:58→20:21)
[2021-04-20] MEDS: ASPIRIN EC 81 MG TAB PO SCH (08:59)
[2021-04-20] MEDS: THIAMINE HCL 100 MG TABLET PO SCH (08:59)
[2021-04-20] MEDS: METHYLPREDNISOLONE 125 MG INJ IV SCH ×2 (08:59→20:20)
[2021-04-20] MEDS: ASCORBIC ACID 500 MG TABLET PO SCH ×4 (08:59→20:21)
[2021-04-20] MEDS: BARICITINIB 2 MG TABLET PO SCH (09:01)
[2021-04-20] MEDS: ALPRAZOLAM 0.25 MG TABLET PO PRN ×2 (14:45→21:47)
[2021-04-20] MEDS: ENOXAPARIN 40 MG/0.4 ML SQ SCH (17:48)
[2021-04-21 05:55] LABS: Absolute Lymphocytes (CBC) 1.5 K/uL (0.7-4.9); Basophils % 0.1 % (0-1.3); Hematocrit 40.8 % (39.6-49.0); Lymphocytes % 10.7 % (15.3-44.8); MPV 7.3 fL (7.6-11.3); RBC Red Blood Cell Count 4.69 M/uL (4.33-5.43)
[2021-04-21 06:28] LABS: AST/SGOT 111 U/L (15-37); Albumin 2.9 g/dL (3.4-5.0); Alkaline Phosphatase 41 U/L (45-117); BUN Blood Urea Nitrogen 25 mg/dL (7-18); Bicarbonate 31 mmol/L (21-32); Bilirubin Total 0.7 mg/dL (0.2-1.0); Ferritin 1064.8 ng/mL (26-388); Glucose Level 125 mg/dL (74-106); Potassium 5.3 mmol/L (3.5-5.1); Protein, Total 6.5 g/dL (6.4-8.2); Sodium Level 135 mmol/L (136-145)
[2021-04-21 06:37] LABS: C-Reactive Protein < 2.90 mg/L (<3.00)
[2021-04-21 06:38] LABS: ALT/SGPT 723 U/L (12-78)
[2021-04-21 06:39] LABS: Platelet Estimate INCR; White Blood Cell Scan OK (OK)
[2021-04-21 06:40] LABS: Blood Morphology Comment NOT SEEN (NOT SEEN)
[2021-04-21] MEDS: VITAMIN D 1000 UNIT TAB PO SCH (08:06)
[2021-04-21] MEDS: BARICITINIB 2 MG TABLET PO SCH (08:07)
[2021-04-21] MEDS: ASCORBIC ACID 500 MG TABLET PO SCH ×3 (08:07→17:39)
[2021-04-21] MEDS: ZINC SULFATE 220 MG CAP PO SCH (08:07)
[2021-04-21] MEDS: ASPIRIN EC 81 MG TAB PO SCH (08:07)
[2021-04-21] MEDS: THIAMINE HCL 100 MG TABLET PO SCH (08:07)
[2021-04-21] MEDS: METHYLPREDNISOLONE 125 MG INJ IV SCH (08:08)
[2021-04-21] MEDS: FAMOTIDINE 20 MG TAB PO SCH (08:09)
--- NOTE | 2021-04-21 11:14 | P.PN ---
Date of Service: 04/20/21 Subjective Patient currently doing well with no new complaints Review of Systems 10-point ROS is otherwise unremarkable Physical Examination - Vital Signs Reviewed - Physical Exam General: Alert, In no apparent distress, Oriented x3 Respiratory: Diminished breath sound but otherwise clear Cardiovascular: Regular rate/rhythm, Normal S1 S2 Gastrointestinal: Nontender Neurological: No focal deficits appreciable Assessment & Plan - Problems (Diagnosis) (1) Pneumonia due to COVID-19 virus Current Visit: Yes Status: Acute - Plan Continue plan of care as mentioned below: 1. Continue with IV steroids 2. Monitor inflammatory markers 3. Repeat chest x-ray 4. O2 per protocol-continue to wean at this time 5. Continue with albuterol inhaler therapy; also supportive care 6. GI and DVT prophylaxis
[2021-04-21] MEDS ORDERED: NA CHLORIDE 0.9% 1,000 ML IV SCH (12:00)
[2021-04-21] MEDS: ENOXAPARIN 40 MG/0.4 ML SQ SCH (16:02)
[2021-04-21 16:52] LABS: AST/SGOT 82 U/L (15-37); Alkaline Phosphatase 40 U/L (45-117); BUN Blood Urea Nitrogen 25 mg/dL (7-18); Bicarbonate 31 mmol/L (21-32); Bilirubin Total 0.5 mg/dL (0.2-1.0); Glucose Level 113 mg/dL (74-106); Potassium 4.8 mmol/L (3.5-5.1); Protein, Total 6.4 g/dL (6.4-8.2); Sodium Level 138 mmol/L (136-145)
[2021-04-21 16:53] LABS: ALT/SGPT 660 U/L (12-78)
[2021-04-21 18:15] VITALS: O2SAT 96
[2021-04-21 18:44] VITALS: BP 108/58; TEMP 97.8
[2021-04-21] MEDS ORDERED: predniSONE 20 MG TAB PO SCH (21:00)
--- NOTE | 2021-04-22 07:45 | RAD REPORT ---
EXAM DESCRIPTION: US - Abdomen Exam Complete - 04/21/2021 5:55 pm CLINICAL HISTORY: Patient with elevated liver enzyme Possible imaging system and telephoned system malfunctions precluded earlier reporting. COMPARISON: No comparisons FINDINGS: Gallbladder size is normal. No gallstones, wall thickening or pericholecystic fluid. Commo n bile duct is normal with no common duct stone identified. Liver is enlarged at 19 cm with diffuse, coarsened increased echogenicity. This is a pattern typical for prominent fatty infiltration. No focal liver lesion or nodular capsule. Doppler evaluation shows no portal vein abnormality. Spleen is 10 cm with no focal splenic abnormality. The pancreas is too obscured by bowel for assessment. No hydronephrosis or suspicious mass in either kidney. Aorta and IVC are obscured by bowel gas. No ascites or bulky lymphadenopathy. IMPRESSION: Diffuse fatty infiltration of an enlarged 19 centimeter liver. No focal liver lesion. Pancreas, aorta and IVC are too obscured by bowel gas to allow optimal assessment.
--- NOTE | 2021-04-28 02:52 | P.DS ---
Discharge Date: 04/21/21 Disposition: ROUTINE DISCHARGE Discharge Condition: GOOD Reason for Admission: covid pneumonia - Problems (1) Pneumonia due to COVID-19 virus Status: Acute Brief History of Present Illness: Mr. Valenzuela is a 35 yo M who presents with worsening SOB, and COVID+ diagnosis. He started having symptoms 2 weeks ago. Initially it was fever, chills, body aches, cough, nausea, vomiting, diarrhea, and poor appetite. 3 days ago the SOB began so he went to the ED and went home on steroids and Ivermectin. He says this improved the fevers, but he still is SOB and cannot sleep due to the cough. Ddimer 826. Na 127, Cl 95, GFR 69, Ferritin 929, CRP 72 , Dbili 0.3, AST 146, ALT 80. Hospital Course: Patient has done well during hospitalization. Patient's respiratory status has improved. Patient breathing much better. At this time, patient is stable for discharge with outpatient follow-up. Patient will continue home oxygen and patient will continue with inhaler therapy along with cough medication and blood thinner. Vital Signs/Physical Exam: Temp Pulse Resp BP Pulse Ox 97.8 F 86 16 108/58 L 92 04/21/21 16:00 04/21/21 16:00 04/21/21 16:00 04/21/21 16:00 04/21/21 16:00 General: Alert, In no apparent distress, Oriented x3 Laboratory Data at Discharge: WBC 13.60 K/uL (4.3-10.9) H 04/21/21 05:32 Hgb 13.8 g/dL (13.6-17.9) 04/21/21 05:32 Hct 40.8 % (39.6-49.0) 04/21/21 05:32 Plt Count 588 K/uL (152-406) H 04/21/21 05:32 PT 14.2 SECONDS (9.5-12.5) H 04/12/21 02:45 INR 1.23 04/12/21 02:45 Sodium 138 mmol/L (136-145) 04/21/21 16:07 Potassium 4.8 mmol/L (3.5-5.1) 04/21/21 16:07 BUN 25 mg/dL (7-18) H 04/21/21 16:07 Creatinine 0.88 mg/dL (0.55-1.3) 04/21/21 16:07 Glucose 113 mg/dL (74-106) H 04/21/21 16:07 Phosphorus 2.4 mg/dL (2.5-4.9) L 04/13/21 02:54 Magnesium 2.0 mg/dL (1.8-2.4) 04/21/21 05:32 Total Bilirubin 0.5 mg/dL (0.2-1.0) 04/21/21 16:07 AST 82 U/L (15-37) H 04/21/21 16:07 ALT 660 U/L (12-78) H* 04/21/21 16:07 Alkaline Phosphatase 40 U/L (45-117) L 04/21/21 16:07 Triglycerides 108 mg/dL (<150) 04/13/21 02:54 Cholesterol 127 mg/dL (<200) 04/13/21 02:54 HDL Cholesterol 21 mg/dL (40-60) L 04/13/21 02:54 Cholesterol/HDL Ratio 6.05 04/13/21 02:54 Home Medications: Albuterol Inhaler [Ventolin Inhaler*] 2 puff IH Q6H PRN #1 hfa.aer.ad 04/21/21 Apixaban [Eliquis] 5 mg PO BID #30 tablet 04/21/21 Ascorbic Acid [Vitamin C*] 500 mg PO QID #60 tablet 04/21/21 Benzonatate [Tessalon Perle] 100 mg PO TID #30 cap 04/21/21 Cholecalciferol (Vitamin D3) [Vitamin D 1000 Iu Tab*] 4,000 unit PO DAILY #60 tab 04/21/21 Famotidine [Pepcid*] 20 mg PO BID #60 tab 04/21/21 Hydrocodone 7.5/APAP 325 [[place] 7.5/325 mg*] 1 tab PO Q6H PRN #20 tab 04/21/21 Melatonin 5 mg PO BEDTIME PRN PRN #20 tablet 04/21/21 Thiamine HCl [Vitamin B-1*] 200 mg PO DAILY #60 tablet 04/21/21 Zinc Sulfate [Zinc Sulfate*] 220 mg PO DAILY #20 cap 04/21/21 predniSONE [Prednisone*] 20 mg PO BID #20 tab 04/21/21 New Medications: Apixaban [Eliquis] 5 mg PO BID #30 tablet Melatonin 5 mg PO BEDTIME PRN PRN #20 tablet PRN Reason: Insomnia Hydrocodone 7.5/APAP 325 [[place] 7.5/325 mg*] 1 tab PO Q6H PRN #20 tab PRN Reason: Pain Scale 5-7 (Moderate) Famotidine [Pepcid*] 20 mg PO BID #60 tab predniSONE [Prednisone*] 20 mg PO BID #20 tab Benzonatate [Tessalon Perle] 100 mg PO TID #30 cap Albuterol Inhaler [Ventolin Inhaler*] 2 puff IH Q6H PRN #1 hfa.aer.ad PRN Reason: Shortness Of Breath Thiamine HCl [Vitamin B-1*] 200 mg PO DAILY #60 tablet Ascorbic Acid [Vitamin C*] 500 mg PO QID #60 tablet Cholecalciferol (Vitamin D3) [Vitamin D 1000 Iu Tab*] 4,000 unit PO DAILY #60 tab Zinc Sulfate [Zinc Sulfate*] 220 mg PO DAILY #20 cap Physician Discharge Instructions: PROBLEM: (covid) GOAL: Clear understanding of disease process INSTRUCTIONS: OK TO DC IV AND DC HOME FOLLOW-UP WITH PRIMARY CARE PROVIDER IN 1-2 WEEKS Return to the ER if symptoms worsen CALL or TEXT DR. ESPINO AT [phone] IF ANY QUESTIONS REGARDING HOSPITAL STAY. PLEASE CALL THE FLOOR AT [phone] IF ANY MEDICATION OR NURSING QU Diet: AHA Activity: Fall precautions DME DME: Date Ordered: Name of Company: [employer] Services Needed: DME Company Name of Company: undetermined Date or Referral: IMMUNIZATION Influenza Vaccine Indicated: Influenza Vaccine Given: Date Given: Pneumonia Vaccine Indicated: Pneumonia Vaccine Given: Date Given: OK TO DC IV AND DC HOME Diet: AHA Activity: Fall precautions Followup: Unknown,U [Primary Care Provider] - Time spent managing pt's care (in minutes): 35
== END 2021-04-21 19:55 | disposition home or self-care (01) | DRG 177 ==
LOC: ER 00:30 → ERHOLD 04:11 → 4TH 04-14 23:29
PROVIDERS: ADMIT Family Medicine; ATTEND Family Medicine
DX: U07.1 COVID-19 (principal); J12.82 Pneumonia due to coronavirus disease 2019; E87.1 Hypo-osmolality and hyponatremia; R09.02 Hypoxemia; R06.00 Dyspnea, unspecified; R79.89 Other specified abnormal findings of blood chemistry; K76.0 Fatty (change of) liver, not elsewhere classified; F41.9 Anxiety disorder, unspecified
CPT/HCPCS: 36415; 71045; 71275; 76700; 76705; 80048; 80053; 80061; 80076; 82728; 82805; 83735; 83880; 84100; 84145; 84439; 84443; 84484; 85025; 85379; 85610; 86140; 93005; 94010; 94760; 96361; 96374; 99285; J1650; J2270; J2920; J2930; J7030; Q9967; U0003